=== PATIENT | male | born 1950 | race Caucasian/White ===

== ENCOUNTER 2021-07-23 07:31 | Outpatient (CLI) | payer MEDICARE, SELFPAY ==
--- NOTE | 2021-08-08 16:53 | WPDHOMESLEEP ---
Sleep Study - Home Unattended Date of Study: 07/23/21 Ordering Provider: Kenyon Colvin APRN Interpreting Provider: Yumi Carrion MD Home Sleep Study Type: Watch PAT Height: 1.85 m Weight: 111.13 kg Body Mass Index: 32.3 Neck Circumference (inches): 18.50 [place]: 11 Reason for Sleep Study Hypersomnolence Sleep History Vivek Carrillo is a 71-year-old man with difficulty falling asleep and staying asleep. 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 He has his normal bedtime is 3:00 a.m., normally wakes between 8 and 9:00 a.m.. He stays up late in order to relax and be able to fall asleep but sometimes he has a difficult time falling asleep and he may stay awake all night. He has used trazodone 100 mg and melatonin 20 mg with some benefit. He does not take these every night however these do seem to help and he does not have side effects. He does not awaken from sleep feeling short of breath. He rarely awakens at night with heartburn, belching or coughing. He occasionally snores, and it can be loud enough that others complain about it. He rarely has trouble sleeping with a cold. He does not wake up gasping for breath at night. He occasionally has breathing problems at night observed by others. He rarely sweats excessively at night. He does not notice his heart pounding or beating irregularly at night. He frequently falls asleep during the day, and frequently this happens involuntarily. He occasionally falls asleep while driving. He does not have loss of muscle tone with strong emotion. He does not have daytime difficulties due to excessive sleepiness. He is retired. He does not feel paralyzed on waking or falling asleep. He occasionally has vivid dreamlike scenes upon awakening or falling asleep. He does not feel afraid to go to sleep. He occasionally has nightmares. He occasionally remembers his dreams. He occasionally has racing thoughts. He rarely feels sad, depressed or anxious. He does not have muscular tension. He occasionally notices parts of his body jerking. He occasionally kicks at night. He rarely has crawling and aching feelings in his legs. He rarely has any kind of leg pain at night. He does not have morning jaw pain. He rarely grinds his teeth during sleep. He is not bothered by pain during the day or awakened by pain at night. He rarely wakes up feeling stiff the morning. He does not wake up with sore achy muscles. He does not wake up with pain in the neck and spine. He has fatigue, memory problems, depression and sexual problems. He frequently has daytime sleepiness. Normal bedtime 3:00 a.m. falling asleep within 15 minutes waking once at night to urinate sometimes he does not awaken at all. He wakes the morning between 8 and 9:00 a.m.. Weekend schedule is the same. He takes naps in the afternoon or evening. A short nap may be refreshing. He feels better in the morning compared to other times of day. Habits: quit tobacco 40 years ago. Caffeine 2-3 servings a day. Alcohol 3-5 servings per week. [facility] Past Medical History Medical History (Updated 08/08/21 @ 17:06 by Yumi Carrion MD) Asthma Chronic cough Depression with anxiety Hypersomnia PAT (paroxysmal atrial tachycardia) Seasonal allergies Social History Social History (Updated 05/29/21 @ 10:19 by Iliana Ramirez CMA) Smoking packs per day: 1 Smoking cigarettes per day: 20.0 Years smoked: 30 Smoking pack-years: 30.00 Smoking status: Former smoker Medications Home Medications Medication Instructions Recorded Confirmed Type B-complex with vitamin C 1 tablet PO DAILY 11/19/19 05/29/21 History ascorbic acid (vitamin C) 500 mg 500 mg PO DAILY 11/19/19 05/29/21 History tablet aspirin 81 mg tablet,delayed 81 mg PO DAILY 11/19/19 05/29/21 History release bupropion HCl 300 mg 24 hr tablet, 300 mg PO QAM 11/19/19 05/29/21 History extended release cholecalciferol (vitamin D3) 25 1
[2021-08-08 17:11] VITALS: BMI 32.3
== END 2021-07-24 13:12 | disposition home or self-care (01) ==
LOC: ANHCSM 07:36
PROVIDERS: PCP Nurse Practitioner Family; Visit Provider Nurse Practitioner Family
DX: G47.31 Primary central sleep apnea (principal); G47.10 Hypersomnia, unspecified; R06.83 Snoring; Z68.32 Body mass index [BMI] 32.0-32.9, adult; F32.9 Major depressive disorder, single episode, unspecified
CPT/HCPCS: 95800

== ENCOUNTER 2022-09-12 09:34 | Outpatient (CLI) | payer MEDICARE, SELFPAY ==
--- NOTE | 2022-09-12 09:55 | ECHO_ITS ---
Patient Info Name: Vivek Carrillo Age: 72 years : 1950 Gender: Male Ht: 73 in Wt: 240 lbs BSA: 2.40 m2 HR: 78 bpm BP: 144 / 88 mmHg Technical Quality: Fair Exam Date: 09/12/2022 10:40 AM Exam Location: [facility] Patient Status: Outpatient Admit Date: 09/12/2022 Staff Ordering Physician: Sisi Rubio PA-C Drywall Finishing Foreman: Elsi García RDCS Attending Provider: Sisi Rubio PA-C Exam Type: CA echo doppler color flow Study Info Indications - sleep cancer Complete two-dimensional, color flow and Doppler transthoracic echocardiogram is performed. Summary 1. Complete two-dimensional, color flow and Doppler transthoracic echocardiogram is performed. 2. Left ventricular chamber dimension is normal. 3. Left ventricular systolic function is normal, estimated at 60-65%. 4. There is mildly increased left ventricular wall thickness. 5. The left ventricular diastolic function is grade I diastolic dysfunction. 6. E/e' 6 is not elevated. 7. There is mild mitral valve regurgitation. 8. No pulmonary hypertension, estimated pulmonary arterial systolic pressure is 21 mmHg. Left Ventricle E/e' 6 is not elevated. Left ventricular chamber dimension is normal. Left ventricular systolic function is normal, estimated at 60-65%. There is mildly increased left ventricular wall thickness. The left ventricular diastolic function is grade I diastolic dysfunction. Right Ventricle Right ventricular systolic function is normal and with normal TAPSE 2.7 cm. Right ventricular chamber dimension is normal. Left Atria Left atrial chamber dimension is normal. Right Atria Right atrial chamber dimension is normal. Aortic Valve The aortic valve is trileaflet. There is no aortic valve stenosis. There is no aortic valve regurgitation. Pulmonic Valve There is no pulmonic regurgitation. Mitral Valve There is no mitral valve stenosis. There is mild mitral valve regurgitation. Tricuspid Valve There is no tricuspid valve regurgitation. No pulmonary hypertension, estimated pulmonary arterial systolic pressure is 21 mmHg. Pericardium/Pleural There is no pericardial effusion. Inferior Vena Cava Normal inferior vena cava with >50% collapse upon inspiration consistent with normal right atrial pressure, 5 mmHg. Aorta The aortic root size at the sinus of Valsalva is normal. Left Ventricular Outflow Tract Name Value Normal LVOT 2D LVOT Diameter 2.1 cm LVOT Doppler LVOT Peak Gradient 5 mmHg LVOT Mean Gradient 3 mmHg LVOT VTI 26 cm LVOT VTI/AV VTI Ratio 0.8 LVOT Stroke Volume 88 ml LVOT CO 16.5 l/min LVOT CI 6.9 l/min/m2 Pulmonic Valve Name Value Normal PV Doppler
== END 2022-09-12 09:35 | disposition home or self-care (01) ==
PROVIDERS: PCP Internal Medicine; Visit Provider Physician Assistant
DX: G47.31 Primary central sleep apnea (principal)
CPT/HCPCS: 93306

== ENCOUNTER 2022-10-09 07:06 | Outpatient (CLI) | payer MEDICARE, SELFPAY ==
--- NOTE | 2022-11-07 11:44 | WPDSLEEPSTUD ---
Sleep Study Date of Study: 10/09/22 Ordering Provider: GIDEON Diggs Interpreting Physician: Yumi Carrion MD Sleep Study Type: Split Polysomnogram Height: 1.85 m Weight: 108.862 kg Body Mass Index: 31.6 Neck Circumference (inches): 18.5 [place]: 7 Reason for Sleep Study Restless sleep, excessive daytime sleepiness * 08/08/21 - Home sleep test - Mild central sleep apnea with AHI 14.4 which is mainly central events, desaturation to 88%, snoring. He is not a candidate for auto PAP with the majority of events scored as central events.? His severity of apnea is much higher in REM. The central apnea hypopnea index in REM is 26.7 and the overall apnea-hypopnea index is 33.4 in REM.? This is also higher in the supine position with an AHI of 29.8. BMI 32.3 at that time. Sleep History Vivek Carrillo is a 72-year-old man with restless sleep. His medical comorbidities include hypertension, depression, acid reflux and seasonal allergies. He uses sleeping pills at times to initiate sleep. If he has had restless sleep and the sheets are torn off the bed, he remakes the bed before he is able to resume sleep. He wakes during the night use the bathroom and adjust the covers on the bed. There is a family history of sleep disorders with both of his brothers being treated for sleep apnea. He does not awaken from sleep feeling short of breath. He does not awaken at night with heartburn, belching or coughing. He occasionally snores. He sleeps alone so he is not certain if it is loud or not. He rarely has trouble sleeping with a cold. He does not wake up gasping for breath at night. He rarely sweats excessively at night. He does not notice his heart pounding or beating irregularly at night. He occasionally falls asleep during the day, occasionally falls asleep involuntarily including while driving. He does not have loss of muscle tone with strong emotion. He does not feel paralyzed on waking or falling asleep. He does not have daytime difficulties due to excessive sleepiness. He occasionally has vivid dreamlike scenes upon waking or falling asleep. He occasionally has nightmares. He frequently remembers his dreams. He frequently has racing thoughts. He occasionally feels sad, depressed or anxious. He rarely has muscular tension. He does not notice parts of his body jerking. He frequently kicks at night and occasionally has crawling and aching feelings in his legs. He occasionally has leg pain during the night. He does not have morning jaw pain. He occasionally grinds his teeth during sleep. He rarely is bothered by pain during the day or awakened by pain during the night. He occasionally wakes up feeling stiff in the morning. He rarely wakes up with sore achy muscles or pain in the neck and spine. He takes sedatives to help get to sleep. He has memory problems. Normal bedtime is between 1:00 a.m. and 3:00 a.m., taking 30 minutes or sometimes a long as 1 hour to fall asleep. He typically wakes up 1-3 times at night to urinate. While awake he remains his bed. He stays awake for several minutes before falling asleep. His normal wake up time is between 7:00 a.m. and 9:00 a.m.. He has the same schedule on weekends. He estimates getting 5-8 hours of sleep at night. He sometimes takes naps in the afternoon or evening. He may feel refreshed after short 10-15 minute nap. He feels better in the morning compared to other times of day. Some nights he awakens feeling refreshed. Habits: Quit tobacco 40 years ago. No caffeine. He drinks alcohol 1-3 beverages a day. No recreational drugs. [facility] Past Medical History Medical History Asthma Chronic cough Depression with anxiety Hypersomnia MILADY (obstructive sleep apnea) PAT (paroxysmal atrial tachycardia) Seasonal allergies Social History Social History Smoking packs per day:
[2022-11-07 13:17] VITALS: BMI 31.6
--- NOTE | 2023-02-18 11:33 | SLEEP ---
pt is only using 1 hour nightly
--- NOTE | 2023-05-23 11:48 | SLEEP ---
pt returned device to [facility]
== END 2022-10-10 06:32 | disposition home or self-care (01) ==
PROVIDERS: PCP Internal Medicine; Visit Provider Physician Assistant
DX: G47.33 Obstructive sleep apnea (adult) (pediatric) (principal)
CPT/HCPCS: 95810; 95811

== ENCOUNTER 2024-06-10 13:33 | Outpatient (CLI) | payer MEDICARE, SELFPAY ==
--- NOTE | 2024-06-10 13:39 | ECHO_ITS ---
Patient Info Name: Vivek Carrillo Age: 74 years : 1950 Gender: Male Ht: 72 in Wt: 250 lbs BSA: 2.44 m2 HR: 58 bpm BP: 169 / 98 mmHg Heart Rhythm: Sinus Rhythm Technical Quality: Good Exam Date: 06/10/2024 1:57 PM Exam Location: Echo Lab Patient Status: Outpatient Admit Date: 06/10/2024 Staff Ordering Physician: eKnyon Colvin APRN Food Server: Anny Brian RDCS Attending Provider: Kenyon Colvin APRN Referring Physician: Vinicius MAI; Exam Type: CA echo doppler color flow Study Info Indications - edema Complete two-dimensional, color flow and Doppler transthoracic echocardiogram is performed. Summary 1. Left ventricular chamber dimension is normal. 2. Left ventricular systolic function is normal, estimated at 60-65%. 3. There is mildly increased left ventricular wall thickness. 4. The left ventricular diastolic function is grade I diastolic dysfunction. 5. Right ventricular systolic function is normal. 6. There is trace mitral valve regurgitation. 7. There is trace tricuspid valve regurgitation. 8. No pulmonary hypertension, estimated pulmonary arterial systolic pressure is 12 mmHg. 9. Normal inferior vena cava with >50% collapse upon inspiration consistent with normal right atrial pressure, 3 mmHg. Left Ventricle Left ventricular chamber dimension is normal. Left ventricular systolic function is normal, estimated at 60-65%. There is mildly increased left ventricular wall thickness. The left ventricular diastolic function is grade I diastolic dysfunction. Right Ventricle Right ventricular chamber dimension is normal. Right ventricular systolic function is normal. Left Atria Left atrial chamber dimension is normal. Right Atria Right atrial chamber dimension is normal. Atrial Septum Intact interatrial septum visualized by color flow imaging. Aortic Valve The aortic valve is not well visualized. There is no aortic valve stenosis. There is no aortic valve regurgitation. Pulmonic Valve The pulmonic valve is not well visualized. Mitral Valve There is trace mitral valve regurgitation. Tricuspid Valve There is trace tricuspid valve regurgitation. No pulmonary hypertension, estimated pulmonary arterial systolic pressure is 12 mmHg. Pericardium/Pleural The pericardium appears epicardial fat pad. There is no pericardial effusion. Inferior Vena Cava Normal inferior vena cava with >50% collapse upon inspiration consistent with normal right atrial pressure, 3 mmHg. Aorta The aortic root size at the sinus of Valsalva is normal. Left Ventricular Outflow Tract Name Value Normal LVOT 2D LVOT Diameter 2.0 cm LVOT Doppler LVOT Peak Gradient 4 mmHg LVOT Mean Gradient 3 mmHg LVOT VTI 27 cm LVOT VTI/AV VTI Ratio 1.0 LVOT Stroke Volume 89 ml LVOT CO 4.8 l/min LVOT CI 2.0 l/min/m2 Pulmonic Valve Name Value Normal
== END 2024-06-10 13:34 | disposition home or self-care (01) ==
LOC: ANHCARD 13:34
PROVIDERS: PCP Internal Medicine; Visit Provider Nurse Practitioner Family
DX: R60.9 Edema, unspecified (principal); R06.01 Orthopnea
CPT/HCPCS: 93306

== ENCOUNTER 2024-12-06 09:45 | Outpatient (CLI) | payer MEDICARE, SELFPAY ==
[2024-12-06 10:17] LABS: Basophils Absolute Auto 0.1 K/mm3 (0.0-0.1); Basophils Percent Auto 1.4 % (0.2-1.2); Eosinophils Absolute Auto 0.5 K/mm3 (0-0.3); Eosinophils Percent Auto 6.9 % (0-4.4); Hematocrit 44.4 % (42.0-52.0); Hemoglobin 15.1 g/dL (14.0-18.0); Immature Granulocyte Absolute 0.03 K/mm3 (0.00-0.031); Immature Granulocyte Percent A 0.4 % (0-0.5); Lymphocytes Absolute Auto 2.09 K/mm3 (0.9-3.2); Lymphocytes Percent Auto 28.9 % (18.3-44.2); Mean Corpuscular Hemoglobin 31.7 pg (26-34); Mean Corpuscular Volume 93.3 fl (80-100); Mean Platelet Volume 9.1 fl (7.4-10.4); Monocytes Absolute Auto 0.7 K/mm3 (0.1-0.6); Monocytes Percent Auto 9.9 % (2.6-8.5); Neutrophils Absolute Auto 3.8 K/mm3 (1.3-6.7); Neutrophils Percent Auto 52.5 % (45.5-73.1); Platelet Count Result 219 k/mm3 (150-375); Red Blood Count 4.76 M/mm3 (4.6-6.20); Red Cell Distribution Width 12.4 % (11.5-14.5); White Blood Count 7.2 K/mm3 (4.5-10.0)
[2024-12-08 15:43] LABS: Alternaria alternata IgE <0.10 kU/L; Alternaria alternata IgE Class 0; Aspergillus fumigatus IgE <0.10 kU/L; Bermuda Grass (G2) IgE <0.10 kU/L; Bermuda Grass (G2) IgE Class 0; Cat Dander IgE <0.10 kU/L; Cat Dander IgE Class 0; Cladosporium herbarum IgE <0.10 kU/L; Cladosporium herbarum IgE Clas 0; Cockroach IgE <0.10 kU/L; Cockroach IgE Clas 0; Common Ragweed IgE Class 0; Cottonwood IgE <0.10 kU/L; Dermatophagoides Farinae Class 0; Dermatophagoides Pterony Class 0/1; Dermatophagoides Pteronyssinus 0.16 kU/L; Dog Dander IgE <0.10 kU/L; Elm (T8) IgE <0.10 kU/L; Elm (T8) IgE Class 0; Hickory/Pecan IgE <0.10 kU/L; Hickory/Pecan IgE Class 0; Immunoglobulin E 58 kU/L (<OR=114); Maple Box Elder IgE Class 0; Mountain Cedar IgE <0.10 kU/L; Mountain Cedar IgE Class 0; Mouse Urine Proteins IgE <0.10 kU/L; Mouse Urine Proteins IgE Class 0; Oak IgE <0.10 kU/L; Peniciliium notatum class 0; Penicillium notatum (M1) IgE <0.10 kU/L; Rough Marsh <0.10 kU/L; Rough Marsh Elder Class 0; Rough Pigweed (W14) IgE <0.10 kU/L; Rough Pigweed (W14) IgE Class 0; Russian Thistle <0.10 kU/L; Sycamore IgE <0.10 kU/L; Sycamore IgE Class 0; Timothy Grass IgE <0.10 kU/L; Timothy Grass IgE Class 0; Walnut Tree IgE <0.10 kU/L; Walnut Tree IgE Class 0; White Ash IgE Class 0; White Mulberry IgE <0.10 kU/L; White Mulberry IgE Class 0
== END 2024-12-06 09:46 | disposition home or self-care (01) ==
LOC: ANHLAB 09:47
PROVIDERS: PCP Internal Medicine; Visit Provider Nurse Practitioner Family
DX: J45.909 Unspecified asthma, uncomplicated (principal)
CPT/HCPCS: 36415; 82785; 85025; 86003

== ENCOUNTER 2025-05-11 13:06 | Outpatient (CLI) | payer MEDICARE, SELFPAY ==
--- NOTE | ~2025-05-11 | CT_ITS ---
CT Scan of the Chest without Contrast: Clinical Indication: Chronic cough Technique: Contiguous sections were acquired throughout the chest without intravenous contrast. Dose reduction technique was used on this scan by utilizing automated exposure control and iterative recon struction technique. The dose-length product (DLP) was 573.88 mGy-cm. Findings: There is no evidence of any significant mediastinal, hilar or axillary lymphadenopathy. Coronary jean pierre ry calcifications are present. There is no evidence of pleural or pericardial effusion. The lungs are clear, aside from minimal bibasilar scarring. Images through the upper abdomen reveal gallstones. 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 Impression: No significant pulmonary abnormality. Cholelithiasis. Reviewed, dictated and finalized at location . Impression: No significant pulmonary abnormality. Cholelithiasis.
--- OUTSIDE RECORDS SUMMARY | 2025-05-11 13:14 | XMS_ITS | Encounter Summary ---
Author Organization [facility] Address [address] [place] [address] Phone Care Team Providers Care Talcer Name Role Phone Chevy Belle MD Primary Care Provider [phone] Farhana Ceron MD Unavailable [phone] Yumi Carrion MD Unavailable [phone] Encounter Details Date Type Department Care Team (Late st Contact Info) Description 09/12/2022 Orders Only [facility] [address] [place] [address] Scanning, Provider Social History Tobacco Use Types Packs/Day Years Used Date Smoking Tobacco: Former Smokeless Tobacco: Former Alcohol Use Standard Drinks/Week Comments Yes 0 (1 standard drink = 0.6 oz pur e alcohol) occassional PHQ-2 Answer Date Recorded PHQ-2 Total Score (If total score is 3 or more points, staff should administer the PHQ-9) 0 05/23/2022 Sex and Gender Information Value Date Recorded Sex Assigned at Not on file Legal Sex Male 11:09 AM ENTERPRISE ARCHITECT Gender Identity Male 10/11/2021 10:38 AM ENTERPRISE ARCHITECT Sexual Orientation Straight 10/11/2021 10 :38 AM ENTERPRISE ARCHITECT 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 Not on file Not on file Not on file documented as of this encounter Plan of Treatment Not on file documented as of this encounter Procedures Procedure Name Priority Date/Time Associated Diagnosis Comments CARDIOLOGY DOCUMENT SCAN 09/12/2022 documented in this encounter Results * CARDIOLOGY DOCUMENT SCAN (09/12/2022) Anatomical Region Laterality Modality Other us Provider Scanning CV CARDIAC SERVICES PROCEDURES Final Result documented in this encounter Visit Diagnoses Not on filedocumented in this encounter Additional Health Concerns Infection Onset Date Last Indicated Resolved Time COVID: Suspected 01/07/2023 01/08/2023 01/08/2023 3:05 AM ENTERPRISE ARCHITECT COVID: Suspected 02/06/2024 02/06/2024 02/06/2024 3:09 PM CDT COVID: Suspected 09/17/2024 09/17/2024 09/17/2024 9:00 AM ENTERPRISE ARCHITECT COVID: Suspected 03/23/2025 03/23/2025 03/23/2025 9:28 AM CDT documented as of this encounter Care Teams Talcer Relationship Specialty Start Date End Date Chevy Belle MD PCP - General 02/07/17 Farhana Ceron MD [address] [place] [address] Surgeon Anesthesiology 09/07/23 Yumi Carrion MD [address] [id number] Consulting Physician Critical Care Med 11/25/24 documented as of this encounter
--- OUTSIDE RECORDS SUMMARY | 2025-05-11 13:14 | XMS_ITS | Clinical Summary ---
Author Organization [facility] Address [address] [facility] [place] [address] Phone Care Team Providers Care Aircraft Layout Worker Name Role Phone Chevy Belle MD Primary Care Provider [phone] Allergies No known active allergies Medications clonazePAM (KLONOPIN) 2 MG Tablet Take 1 mg by mouth nightly as needed. 2 8 Active buPROPion (WELLBUTRIN XL) 150 MG XL tablet take 1 tablet by oral route every day 3 Active LamoTRIgine (LAMICTAL) 150 MG TabletIndicatio ns:Mood Take 150 mg by mouth daily. Indications: Mood Active lisinopril (PRINIVIL, ZESTRIL) 5 MG Tablet Take 5 mg by mouth daily. 8 Active verapamil (CALAN-SR) 240 MG Tablet Controlled Release every morning. 8 Active aspirin EC 81 MG Tablet Delayed Response Take 81 mg by mouth daily. Active MULTIPLE VITAMIN PO Take 1 Tab by mouth daily. Active [place]-3 Fatty Acids (FISH OIL PO) Take 1 Tab by mouth daily. Active glucosamine-cho ndroitin 500-400 MG Capsule Take 1 Cap by mouth daily. Active Ascorbic Acid (VITAMIN C PO) Take 1 Tab by mouth daily. Active Cholecalciferol (VITAMIN D PO) Take 1 Tab by mouth daily. Active nebivolol (BYSTOLIC) 5 MG Tablet Take 10 mg by mouth daily. Active metoprolol Succinate (TOPROL-XL) 50 MG TABLET SR 24 HR Take 50 mg by mouth every morning. Active budesonide-form oterol fumarate (Symbicort) 160-4.5 MCG/ACT Aerosol take 2 Puffs by inhalation 2 times daily. Active allopurinol (ZYLOPRIM) 100 MG Tablet Take 100 mg by mouth 3 times daily. Active Active Problems Problem Noted Date Diagnosed Date Colon polyps 06/22/2024 Family History Medical History Relation Name Comments Cancer Father skin Coronary Artery Disease Father has pacer Other-comment Mother hx of colon re section Relation Name Status Comments Father Alive defibrillator, cardiac dysrhythmia Mother Alive Colon infection , colostomy Social History Tobacco Use Types Packs/Day Years Used Date Smoking Tobacco: Former Cigarettes 1 2 1 - 08/20/1968 Smokeless Tobacco: Never Tobacco Cessation:Counseling Given: Not Answered Alcohol Use Standard Drinks/Week Comments Yes 0 (1 standard drink = 0.6 oz pur e alcohol) rarely PHQ-2 Answer Date Recorded PHQ-2 Score 0 08/20/2019 Sex and Gender Information Value Date Recorded Sex Assigned at Not on file Legal Sex Male 8:55 PM CDT Gender Identity Not on file Sexual Orientation Not on file Last Filed Vital Signs Vital Sign Reading Time Taken Comments Blood Pressure 151/84 06/22/2024 12:26 PM CDT Pulse 85 06/22/2024 12:26 PM CDT Temperature 36 C (96.8 F) 06/22/2024 10:27 AM CDT Respiratory Rate 16 06/22/2024 12:26 PM CDT Oxygen Saturation 100% 06/22/2024 12:26 PM CDT Inhaled Oxygen Concentration - - Weight 113.4 kg (250 lb) 06/10/2024 11:48 AM CDT Height 185.4 cm (6' 1) 06/10/2024 11:48 AM CDT Body Mass Index 32.98 06/10/2024 11:48 AM CDT Plan of Treatment Health Maintenance Due Date Last Done Comments Hepatitis C Virus (HCV) Screening 1950 Zoster Immunization (2 of 2) 10/15/2023 08/20/2023 SARS-COV-2 Immunization ( season) 2024 09/02/2023, 09/03/2022, 02/25/2022, Additional history exists Hepatitis B Immunization (3 of 3 - Hep B Twinrix 3-dose series) 11/08/2024 06/08/2024, 09/02/2023 Influenza Immunization (Season Ended) 2025 08/20/2023, 08/01/2022, 09/10/2021, Additional history exists Pneumococcal Immunization (50+ years) Completed 02/25/2022, 05/08/2017, 04/13/2015 Pneumococcal Immunization Combined Discontinued 02/25/2022, 05/08/2017, 04/13/2015 DTaP/Tdap/Td Immunization Discontinued 06/13/2023, 01/2016 TdaP Immunization Completed 06/13/2023, 09/12/2016 Respiratory Syncytial Virus (RSV) Immunization (Adult) Completed 08/20/2023 Colonoscopy Discontinued 06/22/2024, 09/22/2018 Colorectal Cancer Screening Discontinued Cologuard Discontinued Human Papillomavirus (HPV) Immunization Aged Out No longer eligible based on patient's age to complete this topic Immunochemical Fecal Occult Blood Discontinued Meningococcal Immunization (ACWY) Aged Out No longer eligible based on patient's age to complete this topic Rotavirus Immunization Aged Out No lo nger eligible based on patient's age to complete [place] [address] MEDICARE C [facility] Care Teams Aircraft Layout Worker Relationship Specialty Start Date End Date Chevy Belle MD [address] [place] [address] PCP - General Internal Medicine 12/05/16
--- OUTSIDE RECORDS SUMMARY | 2025-05-11 13:14 | XMS_ITS | Encounter Summary ---
Author Organization [facility] Address [address] [place] [address] Phone Care Team Providers Care Analyst Business Analysis Name Role Phone Chevy Belle MD Primary Care Provider [phone] Farhana Ceron MD Unavailable [phone] Yumi Carrion MD Unavailable [phone] Encounter Details Date Type Department Care Team (Late st Contact Info) Description 07/24/2017 Orders Only [facility] [address] [place] [address] Chevy Belle MD [address] [place] [address] Dry eyes (Primary Dx) Social History Tobacco Use Types Packs/Day Years Used Date Smoking Tobacco: Former Smokeless Tobacco: Former Alcohol Use Standard Drinks/Week Comments Yes 0 (1 standard drink = 0.6 oz pur e alcohol) Sex and Gender Information Value Date Recorded Sex Assigned at Not on file Legal Sex Male 11:09 AM HOME PARAPROFESSIONAL Gender Identity Male 10/11/2021 10:38 AM HOME PARAPROFESSIONAL Sexual Orientation Straight 10/11/2021 10 :38 AM HOME PARAPROFESSIONAL documented as of this encounter Plan of Treatment Not on file documented as of this encounter Visit Diagnoses Diagnosis Dry eyes- Primary Unspecified tear film insufficiency documented in this encounter Additional Health Concerns Infection Onset Date Last Indicated Resolved Time COVID: Suspected 03/05/2022 03/05/2022 03/05/2022 2:46 PM CDT COVID: Suspected 01/07/2023 01/08/2023 01/08/2023 3:05 AM HOME PARAPROFESSIONAL COVID: Suspected 02/06/2024 02/06/2024 02/06/2024 3:09 PM CDT COVID: Suspected 09/17/2024 09/17/2024 09/17/2024 9:00 AM HOME PARAPROFESSIONAL COVID: Suspected 03/23/2025 03/23/2025 03/23/2025 9:28 AM CDT documented as of this encounter Care Teams Analyst Business Analysis Relationship Specialty Start Date End Date Chevy Belle MD PCP - General 02/07/17 Farhana Ceron MD [address] [place] [address] Surgeon Anesthesiology 09/07/23 Yumi Carrion MD [address] [address] Consulting Physician Critical Care Med 11/25/24 documented as of this encounter
--- OUTSIDE RECORDS SUMMARY | 2025-05-11 13:14 | XMS_ITS | Continuity of Care Document ---
Author Organization [facility] [place] [address] [place] [address] Phone Care Team Providers Care It Consulting Director Name Role Phone Darin Williamson OD Unavailable Unavailable Allergies, Adverse Reactions, Alerts Substance Reaction Status Criticality No Known Allergies Active No Inform ation Medications Medication Instructions Dosage Effective Dates (start - stop) Status Comments lamotrigine 150 mg tablet - Active clonazepam 2 mg tablet - Act bobby bupropion HCl XL 300 mg 24 hr tablet, extended release - Active lisinopril 5 mg tablet - Act bobby methylprednisolone 4 mg tablets in a dose pack - Active etodolac 400 mg tablet - Act bobby multivitamin tablet take 1 tablet by oral route every day with food - Active FISH OIL (unknown strength) Not Available - Active GLUCOSAMINE-CHONDROITIN (unknown strength) Not Available - Active VITAMIN B-12 (unknown strength) Not Available - Active Opcon-A 0.91036 %-0.315 % eye drops - Active Advance Directives Directive Yes / No Effective Date File Name No Information Encounters Encounter Description Practice Location Reason(s) For Visit Diagnoses Date Provider Providers Copied on Encounter [facility], [address] [place] [address] [address], [place], [place], [id number], tel:[phone] BIO Kimberlee Rosas No Information Teri Webster. [address], [address], [place], [place], [id number] , . tel:[phone] Referring Provider: Darin Ontiveros, [address], [place], [address] . tel:[phone] [facility], [address], [place], [place], [id number], [place] tel:[phone] SEC Kimberlee Rosas No Information Teri Webster. [address], [address], [place], [place], [address] , . tel:[phone] Family History Family Member Type Diagnosis Age At Onset No Information Payers Payer name Insurance type Covered constitution party ID Authoriza tion(s) No Information Social History Type Description Quantity Date Captured Comments Sex Male Smoking Status No Information Chief Complaint And Reason For Visit No Information Reason For Referral Reason For Referral No Information History Of Present Illness Encounter Date Complaint History Of Prese nt Illness No Information Functional Status Date Functional Assessmen t No Information Instructions Date Instruction Additional Infor mation No Information Assessments Type Assessment Date No Information Patient Care Teams Name Effective Dates (start - stop) Status Members No Information
--- OUTSIDE RECORDS SUMMARY | 2025-05-11 13:14 | XMS_ITS | Clinical Summary ---
Author Organization [facility] Address [address] [place] [address] Care Team Providers Care Alarm Field Technician Name Role Phone Chevy Belle MD Primary Care Provider [phone] Source Comments [facility],non-owned Affiliates and Associated Physician Practices is amultiple site organization consisting of ambulatory clinics and hospital sitesin [place], [place], [place] and [place]. This disclosure is being madepursuant to the Care Everywhere program and may not contain all information available regarding this patient. Last updated 18.[facility] Allergies No known active allergies Medications * This document contains information received from the source organization and may not represent a complete record from that organization. * Be aware that medications may not be up to date on this document. Alwaysverify current medications with the patient. verapamil CR (ISOPTIN-SR) 240 MG tablet Take 240 mg by mouth daily with breakfast Active lisinopril (PRINIVIL; ZESTRIL) 20 MG tablet Take 20 mg by mouth once daily Active buPROPion XL 24hr (WELLBUTRIN-XL) 300 MG tablet Take 300 mg by mouth every morning Active lamoTRIgine (LAMICTAL) 150 MG tablet Take 150 mg by mouth 2 times daily Active clonazePAM (KLONOPIN) 2 MG tablet Take 2 mg by mouth daily with breakfast Active Social History Tobacco Use Types Packs/Day Years Used Date Smoking Tobacco: Never Assessed Sex and Gender Information Value Date Recorded Sex Assigned at Not on file Legal Sex Male 3:21 PM CDT Gender Identity Not on file Sexual Orientation Not on file Last Filed Vital Signs Vital Sign Reading Time Taken Comments Blood Pressure 152/80 01/14/2023 11:30 AM LEATHER SPRAYER Pulse 50 01/14/2023 11:58 AM LEATHER SPRAYER Temperature 36.7 C (98 F) 04/29/2017 2:52 PM CDT Respiratory Rate 13 01/14/2023 11:58 AM LEATHER SPRAYER Oxygen Saturation 94% 01/14/2023 11:58 AM LEATHER SPRAYER Inhaled Oxygen Concentration - - Weight 111.1 kg (245 lb) 01/14/2023 6:37 AM LEATHER SPRAYER Height 185.4 cm (6' 1) 01/14/2023 6:37 AM LEATHER SPRAYER Body Mass Index 32.32 01/14/2023 6:37 AM LEATHER SPRAYER Plan of Treatment Health Maintenance Due Date Last Done Comments HEPATITIS C SCREENING 03/23/1968 DTAP/TDAP/TD VACCINES (1 - Tdap) 1968 PNEUMOCOCCAL VACCINE 50+ (1 of 1 - PCV) 1999 ZOSTER VACCINE (1 of 2) 1999 Respiratory Syncytial Virus (RSV) Vaccine Pt: or over 60 yrs (1 - 1-dose 75+ series) 2024 COVID-19 VACCINE ( season) 2024 09/03/2022, 02/25/2022, 09/19/2021, Additional history exists DEPRESSION SCREENING 11/10/2024 MEDICARE AWV CALENDAR YEAR 2024 INFLUENZA VACCINE (Season Ended) 2025 08/01/2022, 09/10/2021, 07/19/2020, Additional history exists HEPATITIS B VACCINE Aged Out No longe r eligible based on patient's age to complete this topic HIB VACCINE Aged Out No longer eligi ble based on patient's age to complete this topic HPV VACCINE Aged Out No longer eligi ble based on patient's age to complete this topic MENINGOCOCCAL (Group B) VACCINE SHARED DECISION-MAKING Aged Out No longer eligible based on patient's age to complete this topic MENINGOCOCCAL GROUPS A/C/Y/W VACCINE Aged Out No longer eligible based on patient's age to complete this topic Insurance [facility] MANAGED MEDICARE ADV [facility] MANAGED MEDICARE ADV MANAGED MEDICARE ADV Care Teams Alarm Field Technician Relationship Specialty Start Date End Date Chevy Belle MD PCP - General 09/20/19
--- OUTSIDE RECORDS SUMMARY | 2025-05-11 13:14 | XMS_ITS | Referral Summary ---
Author Organization [facility] Address [address] [place] [id number] Care Team Providers Care Rotary Drum Dyer Name Role Phone Chevy Belle MD Primary Care Provider [phone] Farhana Ceron MD Unavailable [phone] Yumi Carrion MD Unavailable [phone] Encounters Date Type Department Care Team Description 04/14/2025 Telephone [facility] [address] [place] [phone] Chevy Belle MD [facility] 03/23/2025 9:00 AM CDT Office Visit [facility] [address] [place] [phone] Yessenia Florentino NP Upper respiratory tract infection, unspecified type (Primary Dx); Mild persistent asthma with (acute) exacerbation from Last 3 Months Allergies Active Allergy Reactions Criticality Noted Date Comments Cyclobenzaprine Other (See comments) Low 09/07/2023 confusion Medications colchicine (COLCRYS) 0.6 mg tabletIndication s:acute gouty arthritis Take 1 tablet (0.6 mg total) by mouth daily for 9 days 9 tablet 1 Active tamsulosin (FLOMAX) 0.4 mg extended release capsule Take 1 capsule (0.4 mg total) by mouth daily 30 capsule 1 2 Active Additional Information Patient not taking.Reported on 03/23/2025 glucosamine-victor hugo droitin (glucosamine-cho ndroitin) 500-400 mg capsule Take 1 capsule by mouth daily Active multivitamin tablet Take 1 tablet by mouth daily Active omega-3 fatty acids-fish oil 300-1,000 mg capsule Take 1 tablet by mouth daily Active allopurinoL (ZYLOPRIM) 100 mg tablet Take 1 tablet (100 mg total) by mouth 3 (three) times a day 2 Active aspirin 81 mg enteric coated tablet Take 1 tablet (81 mg total) by mouth daily Active Symbicort 160-4.5 mcg/actuation inhaler INHALE 2 PUFFS BY MOUTH EVERY 12 HOURS 2 Active buPROPion XL (WELLBUTRIN XL) 300 mg 24 hr tablet Take 1 tablet (300 mg total) by mouth every morning 2 Active clonazePAM (KlonoPIN) 0.5 mg tablet Take 1 tablet (0.5 mg total) by mouth 2 (two) times a day as needed for anxiety 2 Active lamoTRIgine (LaMICtal) 200 mg tablet Take 1 tablet (200 mg total) by mouth daily 2 Active traZODone (DESYREL) 100 mg tablet Take 1 tablet (100 mg total) by mouth nightly Active furosemide (LASIX) 20 mg tablet Take 1 tablet (20 mg total) by mouth daily 30 tablet 4 Active Additional Information Patient not taking.Reported on 03/23/2025 dextromethorphan -guaifenesin 5-100 mg/5 mL liquid Take by mouth Active linaCLOtide (LINZESS) 145 mcg capsuleIndicatio ns:chronic idiopathic constipation Take 1 capsule (145 mcg total) by mouth daily for 8 days 8 capsule 4 Active metoprolol XL (TOPROL-XL) 50 mg extended release tablet TAKE 1 TABLET BY MOUTH DAILY 100 tablet 2 5 Active verapamil SR (CALAN SR) 240 mg CR tablet TAKE 1 TABLET BY MOUTH EVERY 12 HOURS 200 tablet 2 5 Active melatonin 12 mg tablet Taking night as needed for sleep 4 Active meloxicam (MOBIC) 15 mg tabletIndication s:Acute right hip pain Take 1 tablet (15 mg total) by mouth daily With food. 30 tablet 5 Active albuterol HFA (PROVENTIL HFA,VENTOLIN HFA,PROAIR HFA) 90 mcg/actuation inhalerIndicatio ns:Acute cough,Dyspnea on exertion,Wheezin g Inhale 2 puffs every 6 (six) hours as needed for wheezing or shortness of breath 18 g 1 5 Active promethazine-DM (PROMETHAZINE-DM ) 1.25-3 mg/mL syrupIndications :Upper respiratory tract infection, unspecified type Take 5 mL by mouth every 4 (four) hours as needed for cough 120 mL 5 Active Active Problems Problem Noted Date Diagnosed Date Constipation 11/09/2024 Assessment & Plan (11/09/2024 8:21 AM HOUSING RELOCATION): Colonoscopy current polyps found no cancer found patient has developed constipation given Linzess 145 mg use once a day as needed samples of 12 given, date of 10 26 2024 Recurrent major depressive disorder, in remissio n 11/09/2024 Assessment & Plan (11/09/2024 8:26 AM HOUSING RELOCATION): Patient states mood is very good he continues under the care of Dr. Conrado Hughes [facility]. He is on Wellbutrin 300 mg daily, Klonopin 0.5 mg p.r.n. Lamictal 200 mg daily Abrasion of anterior right lower leg 09/25/2024 Assessment & Plan (09/25/2024 6:21 PM HOUSING RELOCATION): Acute, sustained 3 days ago while working any dirty window well. Abrasion as noted above with mild surrounding erythema but no warmth or fluctuance. No current drainage. We will prescribe doxycycline for sinusitis but may help with abrasion also. Keep skin clean and dry, do not pick at scabs. If it becomes dry and itchy he can use plain Vaseline or Neosporin if needed. Weight gain 10/21/2023 Assessment & Plan (10/21/2023 6:11 PM HOUSING RELOCATION): Patient has some swelling of his lower legs that he is concerned about really swelling over his feet patient has gained 21 lb since July this is mostly due to less activity he has back pain he is waiting for back surgery in the next 60 days he has been sitting around doing far less activity and doing a lot of eating snacking . But he is foods salty which would lead to some water retention plans at this time get a CMP proBNP to exclude CHF liver failure and renal failure patient is so advised. TSH not ordered. Bilateral lower extremity edema 10/14/2023 Assessment & Plan (05/03/2024 12:28 PM CDT): Minimal edema around his ankle I think this is physiological. Was reassured this is not represented for heart kidney or liver disease. Specific therapy indicated Assessment & Plan (10/14/2023 4:51 PM HOUSING RELOCATION): Bilateral lower extremity edema x 1 month. Worse to ankles and feet. Patient states that severe lower back pain limits his ability to be active and is very sedentary. Is seeing pain management and neurosurgery for back pain without much improvement. Suspect some component of edema is from sedentary lifestyle. He has tried cutting back on sodium and elevating legs. BP stable in-office today 140/72, pulse 61. 2 + pitting edema to ankles and feet, edema, warmth, redness present bilaterally in feet and toes. No drainage or evidence of infection. Will trial one week of lasix, 20mg daily. Check renal panel today. If kidney values are WNL patient can start lasix. Patient to follow-up with Dr. Belle. Encouraged compression socks during waking hours and increasing physical activity if able. Keep scheduled follow-ups with pain management and neurosurgery. Spinal stenosis of lumbar re gion with neurogenic claudication 09/23/2023 Assessment & Plan (05/03/2024 12:30 PM CDT): Patient had a successful back surgery approximately 6 months ago medical record report pending. Feels well in his asymptomatic Assessment & Plan (09/23/2023 2:09 PM HOUSING RELOCATION): Patient has been referred by [facility] to Neurosurgery in [place]. Patient did not get significant relief from pain management his appointments Neurosurgery is late September COVID-19 06/25/2023 Assessment & Plan (06/25/2023 2:15 PM CDT): URI symptoms for approx 10 days. Tested positive for COVID at home at start of symptoms. Tight cough noted throughout exam, lungs dim in bases but otherwise clear. Significant clear PND. No other acute findings on exam. Will order CXR to r/o PNA. Finish Z pack as directed. Rxd another burst of prednisone. Promethazine DM as needed for cough. Push fluids. Rest is an important part of healing. Obstructive sleep apnea syndrome 03/14/2023 Assessment & Plan (11/09/2024 8:16 AM HOUSING RELOCATION): Patient continues using and benefits from use of CPAP Assessment & Plan (09/23/2023 2:07 PM HOUSING RELOCATION): Patient uses in benefits from CPAP Assessment & Plan (04/02/2023 12:30 PM CDT): Patient's continues to have problems sleeping. Refer him to sleep specialist /display specialist. Patient complains of feeling short of breath when he lies flat patient does have mild sleep apnea on sleep study September 2022 this was done at [facility] Assessment & Plan (03/14/2023 11:10 AM CDT): Patient is having trouble adjusting CPAP machine. Discussed to adjust wearing a mask. Advised the patient's simply put the mask on when he wants television not hooked up CPAP machine he can have the mask on very loosely on his face to get him acclimated to wearing a mask at night when his time to go to bed. Upper respiratory tract infection 01/08/2023 Assessment & Plan (01/08/2023 8:03 AM HOUSING RELOCATION): Acute problem, present times about 1 day Physical examination as documented - no signs/symptoms of serious illness noted COVID 19 and influenza A/B in office - ALL negative Suspect likely viral etiology based on history and physical examination Recommended steroids (with delayed initiation in case his asthma flares) and continued symptom management/monitoring - patient agreeable to plan Discussed sending in prescription for albuterol as needed if asthma flares - patient declines at this time, stating he doesn't think it is necessary at this time Orders for [employer] STAFF to arrange None at this time Orders for Vivek Harrington Lorena to arrange Start prednisone as ordered - complete course, take with food in the morning to prevent stomach upset and insomnia Consider albuterol inhaler as needed Continue OTC medications for symptom management Stay hydrated, eat well, rest as needed Continue monitoring symptoms - report persistent or worsening symptoms to the office or go to ER Follow up as scheduled with Dr. Belle or sooner if necessary Idiopathic gout 05/23/2022 Assessment & Plan (11/09/2024 8:23 AM HOUSING RELOCATION): Zyloprim/allopurinol 300 mg daily as effective in suppressing symptoms. Assessment & Plan (05/23/2022 5:40 PM CDT): Patient is doing very well with respect gout will recheck uric acid level he is maintain on allopurinol and colchicine. Saw a oil truck driver in [place]. Keratosis, seborrheic 02/12/2021 Assessment & Plan (02/12/2021 1:27 PM CDT): Patient has a lesion on his left side of his chest is concerned about is consistent with seborrhea keratosis he is a few places on his back.. Patient's advised no therapy indicated. Exposure to COVID-19 virus 02/12/2021 Assessment & Plan (02/12/2021 1:34 PM CDT): Patient has completed his COVID vaccines. Approximately 1 week prior to his last vaccine he was exposed to someone who had COVID was coughing around him. This patient has remained asymptomatic. There is a concern from his family members because he was around his parents at a family gathering yesterday. Patient a COVID test yesterday and a at a local [facility] have results back until today a tomorrow. Made this patient aware of XLEAR nasal spray/rinse that is been shown to feel COVID for 3-5 day period to time. Pending approval of FDA for treatment COVID. He can pass this information on get this product from any drug store for his parents to use. As a precaution will not cause him any harm. Benign prostatic hyperplasia with post-void drib renae 10/18/2019 Assessment & Plan (05/23/2022 5:36 PM CDT): Medications control symptoms no change in therapy Assessment & Plan (05/15/2020 5:59 PM CDT): Continue Flomax BPH symptoms reasonably controlled Assessment & Plan (01/10/2020 7:00 PM HOUSING RELOCATION): Patient's BPH symptoms greatly improved continue Flomax no change in therapy. Assessment & Plan (10/20/2019 3:45 PM HOUSING RELOCATION): Patient complains of urgency weeks his prostate symptom score is 18 at this time I'm going too start him on Flomax Mild persistent asthma without complication 02/08 Assessment & Plan (11/09/2024 8:16 AM HOUSING RELOCATION): [facility] he is on medication Symbicort for maintenance therapy as well as albuterol HFA he is stable and feels well. Assessment & Plan (09/24/2024 5:00 PM HOUSING RELOCATION): Patient has had increased coughing for the past several days some shortness breath cough is worse when he walks. Worse at night. Cough is nonproductive he is not on ALVARADO inhibitor. Has no fever no chills patient has not been using his albuterol on a routine basis for relief. He is using Symbicort. Patient is advised to start using albuterol more often I want him to use it 3 times a day minimum for the next 3 days . Patient to give me a progress report Friday starting him on prednisone 20 mg twice a day 5 days. Refill albuterol HFA Assessment & Plan (05/03/2024 12:29 PM CDT): Patient is doing well he uses albuterol HFA on a p.r.n. basis with relief of his symptoms when it occurs. Frequency of albuterol less than once a week Assessment & Plan (02/12/2021 1:35 PM CDT): Patient's asthma remains stable no change in therapy. Patient has completed COVID vaccines. Assessment & Plan (10/19/2020 6:22 PM HOUSING RELOCATION): Patient continues do very well of with respect to respiratory problems he is on the Symbicort and this is an excellent therapy for him really has a coughing rarely has shortness of breath. Assessment & Plan (05/15/2020 5:54 PM CDT): Patient's cough is rare he rarely has shortness of breath. Patient doing well is not using inhaler at this time Assessment & Plan (01/10/2020 6:59 PM HOUSING RELOCATION): Patient is doing very well with respect his cough as well as asthma symptoms. No change in therapy. Assessment & Plan (02/25/2019 9:29 AM CDT): He was diagnosed with airway hyperreactivity about 25 years ago while he was in [place]. He was on Advair Diskus for a while but then it was discontinued. He has never had a PFT done. On physical examination he has a minimal wheezing. Pulmonary function testing was ordered. Non-seasonal allergic rhinitis due to pollen Assessment & Plan (02/25/2019 9:26 AM CDT): The patient has a vague history of allergic rhinitis. He has been on allergy pills in the past; however he denies any allergic symptoms at the present time. Abnormal MRI, thoracic spine 05/23/2018 Assessment & Plan (05/23/2018 5:17 PM CDT): Patient MRI of his cervical spine and it shows some abnormal does not upper thoracic spine. More detailed MRI of the thoracic spine was performed was of concern turned out to be an hemangioma. Patient has no thoracic pain at this time he is advised of the findings in is no treatment is indicated for an hemangioma. Medicare annual wellness visit, subsequent 05/08 Assessment & Plan (11/09/2024 8:15 AM HOUSING RELOCATION): History And physical completed patient's health risk assessment health maintenance reviewed and addressed. Patient has had a laminectomy lumbar spine since his last history and physical exam this relieved his back pain. Patient is now under the care of display specialist at [facility] doing well he continues to see Psychiatry for recurrent depression in his very stable Assessment & Plan (09/23/2023 2:06 PM HOUSING RELOCATION): History and physical completed patient's health risk assessment health maintenance reviewed in addressed. Patient's primary health concerns this time he has spinal stenosis appointment coming up in the next few weeks with Neurosurgery. Pain clinic management not been successful. Assessment & Plan (05/23/2022 5:37 PM CDT): History and physical completed patient's health risk assessment health maintenance reviewed in addressed patient's losing weight on purpose and he feels good. Patient has impression he has had a shingles vaccine advised to check with his pharmacy. Assessment & Plan (05/15/2020 5:58 PM CDT): Risk assessment health maintenance reviewed history and physical completed patient is much improved compared to 3 years ago when he was having more asthma problems more rhinitis problems as well as chronic neck pain this is no longer part of his day-to-day health status. Assessment & Plan (04/26/2019 3:11 PM CDT): Patient's exam completed significant findings on exam. Patient's health risk assessment health maintenance reviewed discussed. Laboratory studies a CBC for annual exam BMP in fasting lipid profile as part annual exam as well as VAC is hypertension. Assessment & Plan (05/10/2017 3:41 PM CDT): Physical exam completed appropriate laboratory studies started CMP CBC review previous visit. Immunization brought up-to-date. Discussed patient's sleep problems a greatly improved since his last visit with me he describes he following a more appropriate sleep hygiene past assisting on schedule of going to bed and getting up at particular time. Patient's shoulder pain that was a major problem for him resolved. Former cigarette smoker 11/18/2016 Overview (02/13/2017): Ex-cigarette smoker COPD with acute exacerbation 03/26/2014 Overview (02/13/2017): COPD (chronic obstructive pulmonary disease) Depression 03/26/2014 Overview (02/14/2017): Depression (disease) Assessment & Plan (03/14/2023 11:03 AM CDT): Depression stable he continues under care Psychiatry Assessment & Plan (05/23/2022 5:35 PM CDT): Patient continues under care psychiatrist stable and doing well Assessment & Plan (12/20/2021 12:58 PM HOUSING RELOCATION): Patient's depression stable is still under care of Psychiatry at [facility]. Assessment & Plan (10/19/2020 6:22 PM HOUSING RELOCATION): Patient's depression stable at this time to have times when he is experience in sadness with the holidays and limitation on traveling to see family. Assessment & Plan (05/15/2020 5:53 PM CDT): Depression stable at this time on present medication no change in therapy. Assessment & Plan (04/26/2019 3:14 PM CDT): Patient's managed by psychiatrist conditions stable. Assessment & Plan (10/25/2017 3:02 PM HOUSING RELOCATION): Patient continues sees psychiatrist and psychologist is doing very well with counseling and appropriate medications: Nasal Aga Lamictal and Wellbutrin. Very good mood happy with the quality of life. Patient is concerned about memory loss. mini mental exam was done his score was 30 which is the maximum score indicating no memory deficit up pathological nature strong evidence of dementia significant memory loss. Benign hypertension 03/26/2014 Overview (02/14/2017): BENIGN HYPERTENSION Assessment & Plan (01/19/2025 2:48 PM CDT): Blood pressure slightly elevated 144/60 continue furosemide 20 mg daily metoprolol 50 mg daily verapamil 240 mg daily this is for the visit on 01/2010. No cardiovascular symptoms. Assessment & Plan (11/09/2024 8:27 AM HOUSING RELOCATION): Pressure remains well controlled no change in therapy. 116/68 patient is on verapamil 240 mg daily metoprolol 50 mg daily Assessment & Plan (09/25/2024 6:22 PM HOUSING RELOCATION): Chronic, at goal. BP stable in office today on current therapy. Advised to avoid Sudafed or Sudafed containing products with current URI symptoms, see plan above. No acute findings on exam. CMP from December. Continue metoprolol, Lasix, verapamil as prescribed.low salt diet. Assessment & Plan (05/03/2024 12:32 PM CDT): Blood pressure well controlled patient is tolerating medications metoprolol 50 mg daily cardiac exam 240 mg daily no change in therapy. Patient's EGFR 04/30/2024 was 56 Assessment & Plan (09/07/2023 7:56 PM CDT): BP stable in office today on current therapy. No acute findings on exam. Continue current regimen and low salt diet. Assessment & Plan (07/21/2023 2:17 PM CDT): BP stable in office today on current therapy. No acute findings on exam. Continue current regimen and low salt diet. Assessment & Plan (06/25/2023 2:15 PM CDT): BP stable in office today on current therapy. No acute findings on exam. Continue current regimen and low salt diet. Assessment & Plan (03/14/2023 11:02 AM CDT): Blood pressure remains well controlled patient is tolerating medications no change in therapy Assessment & Plan (05/23/2022 5:36 PM CDT): Blood pressure is well controlled patient is tolerating medications. Assessment & Plan (12/20/2021 11:08 AM HOUSING RELOCATION): BLOOD PRESSURE REMAINS WELL CONTROLLED PATIENT IS TOLERATING MEDICATIONS NO CHANGE IN THERAPY Assessment & Plan (12/14/2020 3:27 PM HOUSING RELOCATION): Blood pressure remains well control no change in therapy. Patient is tolerating medications Assessment & Plan (10/19/2020 6:21 PM HOUSING RELOCATION): Hypertension well controlled patient is tolerating medications no change in therapy. Assessment & Plan (07/06/2020 10:02 AM CDT): BP remains well controlled patient is tolerating medication no change in therapy Assessment & Plan (05/15/2020 5:53 PM CDT): Hypertension well controlled patient is tolerating medications no change in therapy. Assessment & Plan (01/10/2020 6:59 PM HOUSING RELOCATION): Hypertension well controlled patient previously bleed on Bystolic 10 mg per day with samples were given in the past.. Patient will be changed to metoprolol 50 mg per day because of cost of Bystolic. Assessment & Plan (10/20/2019 3:48 PM HOUSING RELOCATION): Hypertension remains well control no change in therapy. Assessment & Plan (04/26/2019 3:14 PM CDT): Hypertension is unchanged. Continue current treatment regimen. Dietary sodium restriction. Weight loss. Regular aerobic exercise. Continue current medications. Blood pressure will be reassessed at the next regular appointment. Assessment & Plan (12/10/2018 5:45 PM HOUSING RELOCATION): Patient's blood pressure is not controlled I discontinued lisinopril because of persistent cough little over 2 weeks ago. He has some abdominal pain blood pressure is significantly elevated at 178/102, lungs are clear no wheezing or rhonchi no murmur gallop. Plans patient given samples of Bystolic 10 mg daily. Please monitor his blood pressure and give his report next several days. Assessment & Plan (10/04/2018 1:43 PM HOUSING RELOCATION): He has high blood pressure which is well controlled on current therapy including verapamil and a relatively low dose of lisinopril. Because of potential interactions between trimethoprim sulfa and lisinopril, we will have him hold the lisinopril for the duration of UTI treatment. Assessment & Plan (05/23/2018 5:19 PM CDT): Hypertension is unchanged. Continue current treatment regimen. Dietary sodium restriction. Weight loss. Regular aerobic exercise. Continue current medications. Blood pressure will be reassessed at the next regular appointment. Assessment & Plan (10/21/2017 10:37 AM HOUSING RELOCATION): Hypertension is unchanged. Dietary sodium restriction. Weight loss. Regular aerobic exercise. Continue current medications. Blood pressure will be reassessed at the next regular appointment. Assessment & Plan (05/10/2017 3:41 PM CDT): Hypertension is unchanged. Continue current treatment regimen. Regular aerobic exercise. Blood pressure will be reassessed at the next regular appointment. History of kidney stones 09/10/1988 Assessment & Plan (09/16/2018 4:57 PM HOUSING RELOCATION): There is a long history of recurring kidney stones, although no symptomatic stones in the last five years or so. If he has a recurrent kidney stone, it might be a nidus of recurring infections. Consider additional workup such as ultrasound depending on the clinical response to therapy. Resolved Problems Problem Noted Date Diagnosed Date Resolved Date Acute non-recurrent maxillary sinusitis 09/17/2024 10/27/2024 Assessment & Plan (09/25/2024 6:19 PM HOUSING RELOCATION): Acute, URI symptoms for 2 weeks. Has tested negative for COVID at home x2. Maxillary tenderness and significant postnasal drip on exam. Also has abrasion to right leg, see plan below. we will prescribe doxycycline as directed. You may take a cough suppressant to calm your cough (Robitussin, delsym, or nyquil). If your cough is productive or you have tight chest congestion with thick mucus- you can use a cough expectorant like Mucinex. Benadryl/Zyrtec/alfredo can be used to dry up a runny nose or post nasal drip. AVOID Sudafed or phenylephrine containing products. Flonase or Nasacort will also help with sinus pressure and nasal drip both. Tylenol/Ibuprofen as needed for pain. Increase fluids (water) Cool mist humidifier at night Use sinus rinses to help flush bacteria and help with congestion. Encouraged honey, marshmallows, gelatin, or chloraseptic to help coat throat. Call with any worsening or persistent symptoms. Edema 10/21/2023 05/03/2024 Assessment & Plan (10/21/2023 6:07 PM HOUSING RELOCATION): Patient has some swelling of his lower legs that he is concerned about really swelling over his feet patient has gained 21 lb since July this is mostly due to less activity he has back pain he is waiting for back surgery in the next 60 days he has been sitting around doing far less activity and doing a lot of eating snacking . But he is foods salty which would lead to some water retention plans at this time get a CMP proBNP to exclude CHF liver failure and renal failure patient is so advised Altered level of consciousness 09/07/2023 09/23/2023 Assessment & Plan (09/07/2023 8:17 PM CDT): Vivid dreams, no memory issues when awake. Family has noticed speech issues on phone, has not noticied any. No other cognitive changes. This all started after he started Flexeril for back pain. No acute findings on exam today, neuro intact. Speech clear. Suspect this is a reaction to the flexeril, stop immediately. See plan for back pain below. Educated patient and on acute stroke symptoms, go to ER if experiencing any of these. Mouth ulcer 07/21/2023 11/09/2024 Assessment & Plan (07/21/2023 2:19 PM CDT): Present for approx 1-2 weeks and hasn't improved with salt water gargles. No acute findings or signs of infection. Advised to clean partial each night. Will rx benzocaine gel as needed. Continue salt water OR baking soda gargles. Call if pain not improved in 2 weeks. Acute bilateral low back trevor n without sciatica 04/02/2023 10/27/2024 Assessment & Plan (09/07/2023 8:13 PM CDT): Managed by pain management (dr. Ceron). Has not gained adequate control with steroid bursts, muscle relaxers, multiple NSAIDs, and PT. XR of lumbar spine in May 2023 showed severe degenerative changes at L5-S1 and moderate facet hypertrophy. MRI has been ordered and is pending insurance approval. Flexeril is causing some questionable altered LOC, stop immediately. Continue Meloxicam and topical pain patches as instructed. Heat/ice as tolerated. Keep follows with pain management as scheduled. Assessment & Plan (07/21/2023 2:17 PM CDT): Dull aching/ tight pain to bilateral lower back worse in the morning. Tylenol and 800mg ibpurofen with mild relief. Heat helps more than ice. Tenderness as noted above, no acute exam findings. XR in May showed moderate degenerative changes. Will switch from 800Ibuprofen to Meloxicam. Heat/ice as tolerated. Given lumbar stretches. Assessment & Plan (05/27/2023 10:57 AM CDT): This patient is not making any significant improvement with his back is approximate 10 weeks now rarely does he have sciatica. Pain is approximate L3 down to L5 paravertebral muscles and over the vertebrae site of pain. He takes 2 800 mg of Motrin in the morning this would last about 6 hours takes 1 in afternoon with not much relief acetaminophen helps him. Patient does not feel sick he has no other bone pain. Minimal get an x-ray of his low back area refer him to a pain clinic at this time. Assessment & Plan (05/17/2023 6:28 PM CDT): Patient did not get much improvement physical therapy for back pain initially prednisone helped him then that wore off. Patient advised me he got volts relief taking 600 mg of ibuprofen several times a day. This time recommend ibuprofen 800 mg 3 times a day on schedule for the next 2-3 weeks. Further recommendations at this time. He has no sciatica with his back pain. And there days he has no pain. Assessment & Plan (04/02/2023 12:38 PM CDT): Back pain approximate 5 days patient's cutting yd last week think this may be related to his onset of back pain. He had some relief from Tylenol arthritis as well as Motrin. Advised patient go to physical therapy learned back exercises that they want to 2 visits should be sufficient. He is had recurrent low back pain in the past but several years. Dyspnea 04/02/2023 05/03/2024 Assessment & Plan (04/02/2023 12:31 PM CDT): Patient complains of shortness of breath when he lies flat he also has sleep apnea recently diagnosed referral display specialist for both problems. Constipation 05/23/2022 05/03/2024 Assessment & Plan (05/23/2022 5:41 PM CDT): Constipation last 4-6 weeks. Patient's colonoscopy is current. He started MiraLax which is helped him. Acute bacterial rhinosinusitis 03/05/2022 05/23/2022 Assessment & Plan (03/05/2022 2:52 PM CDT): Patient presents with congestion, cough and sinus pressure. He reports purulent discharge and no improvement with OTC therapies. He was tested for flue and covid which were negative. Most likely symptoms secondary to acute sinusitis. He was encouraged to begin sinus care as outlined in AVS. He will be sent an antibiotic that he will complete as prescribed. He is to call or return should symptoms worsen or persist. Foot trauma, right, initial encounter 07/11/2021 05/23/2022 Assessment & Plan (07/11/2021 12:48 PM CDT): Patient complains of acute right pain he jammed his foot last week. He also had to do considerable walking in the airport in [place] which aggravated pain even more. Exam this morning 1st metatarsal right warm slightly red. X-rays showed arthritic changes. Lab work from the June 18, 2021 shows elevated uric acid level. Plans at this time Medrol Dosepak. Colchicine 0.6 mg x 2 1st in 1 tablet there to times 10 days. Patient given progress report next week. Right foot pain 06/25/2021 04/02/2023 Assessment & Plan (12/20/2021 1:00 PM HOUSING RELOCATION): Patient's gout and he is under care of Podiatry will check a uric acid level for this information on to his compliance technician patient is very comfortable now with his gout is advised me he is on a particular diet prescribed by his compliance technician. Assessment & Plan (06/29/2021 11:01 AM CDT): Patient presents for follow up on rt foot and ankle pain. Today he states it is feeling better and he is actually able to walk on the foot without pain. He continues however to report pain of the rt lateral malleolus and point tenderness of the rt foot great digit. He has full ROM on exam. Concern for infection appears resolved, with antibitoic. This was discussed with Dr. Shell, who recommends a short trial of steroids as ESR and uric acid elevated, raising concern for gout. Patient was instructed to call with an update on Friday, should he have recurrent pain will refer to ortho for further evaluation and treatment. Assessment & Plan (06/25/2021 2:00 PM CDT): Patient presents with acute right foot that began Friday. See above. Imaging and lab work pending for further evaluation. He will continue with rest, NSAIDs, and elevation. He will complete antibiotics as noted above. Will call or return with fever, increasing pain, redness or swelling. Acute right ankle pain 06/25/202104/02 Assessment & Plan (06/25/2021 1:59 PM CDT): Patient reports last Friday after working he began developing pain in the rt foot and ankle. He noted some swelling and erythema as well. He reports pain is aching and worse with activity. On exam he has pain with dorsiflexion and some erythema of the dorsal aspect of the rt foot and ankle. There is concern for possible cellulitis as noted to have open cut on the rt great toe. We will do imaging to r/o any acute fracture. We will also begin antibiotic therapy. He will have labs to look for any leukocytosis or signs of inflammation. He will follow up in one week or sooner if needed. Ecchymoses, spontaneous 12/14/202004/11 Assessment & Plan (12/14/2020 3:26 PM HOUSING RELOCATION): Patient is a lesion on his left forearm just above the wrist is concerned regarding this finding advised min that this was an ecchymoses in the meaning of this he also has a family history of several people in his family having the same problem. He is also notices skin is becoming thinner which also occurs a some he would aging.. No treatment indicated patient so advised. Fall 04/12/2020 05/15/2020 Assessment & Plan (04/12/2020 9:31 AM CDT): Patient is s/p fall resulting injury to the left great toe. He has noted swelling, erythema, warmth and pain with palpation. We will do xray to r/o any acute fracture. He was encouraged to rest and avoid use. He is to elevate foot to the level of the heart when sitting. He was encouraged to use ice and compression. He can also take tylenol for pain or ibuprofen x 7 days with food. He is to call if symptoms worsen or persist. Cellulitis of great toe of left foot 04/12/2020 05/15/2020 Assessment & Plan (04/12/2020 9:33 AM CDT): Appears to have inflammation and infection noted at site of blister that patient attempted to open on his own. He was instructed to allow blisters to open on their own in the future. There is concern for what appears to be cellulitis at that site of the great toe. Will treat with abx. He is to call if symptoms persist, worsen or he develops fever. Eczema 01/10/2020 05/15/2020 Assessment & Plan (01/10/2020 7:01 PM HOUSING RELOCATION): Eczema on the left shoulder patient given betamethasone 0.05% apply b.i.d. Flu-like symptoms 10/20/2019 01/10/2020 Assessment & Plan (10/20/2019 3:45 PM HOUSING RELOCATION): Patient's flu like symptoms he is advised supportive care Tylenol or Advil Mucinex rest fluids Left foot pain 03/28/2019 04/02/2023 Assessment & Plan (10/19/2020 6:23 PM HOUSING RELOCATION): Patient advised me he is having a bunionectomy in the next 2 months. Assessment & Plan (07/06/2020 10:01 AM CDT): Left great toe pain as well as metatarsal pain. Number membranous jamming his foot in removed remote past. Patient is able to walk on his stand under at times without pain other times her some considerably.. No redness today this no heat no swelling to the area. Is tenderness on palpating over the 1st metatarsal and great toe.. Has at this time check a uric acid level in x-ray of his foot having this see podiatry had do not think he has gout. Assessment & Plan (04/26/2019 3:15 PM CDT): Patient right foot pain resolve no precise etiology found he did have arthritis in his foot but area arthritis was not consistent where pain. Assessment & Plan (03/28/2019 6:50 PM CDT): Right foot pain patient twisted his foot some yd work few weeks ago his pain for 1/3 to 5th metatarsal. He is taking 1 Naprosyn per day this is helping he had gone to the urgent care facility where they recommended this. Review of his chart is x-ray at the urgent care facility is limited to his ankle. X-ray of his right foot was performed no acute fracture seen or fractures when he can seen. BMI 33.0-33.9,adult 02/25/2019 03/23/20 25 Assessment & Plan (02/25/2019 9:30 AM CDT): He has gained about 20 lb since a months ago. Weight management counseling was provided for 10 min. Lifestyle change and diet modification were discussed with the patient in detail. Influenza A 01/23/2019 03/23/2019 Assessment & Plan (01/23/2019 1:41 PM CDT): Patient is symptomatic approximately 36 hours of flu symptoms feeling fatigue hot cold aching run down coughing. Patient's positive for influenza A he started on Tamiflu 75 mg twice a day b.i.d. X5 days.. Advised if he becomes worse he will need to go to hospital and do not anticipate this will happen. Pulmonary infiltrate in righ t lung on chest x-ray 01/23/2019 05/15/2020 Assessment & Plan (01/23/2019 1:41 PM CDT): Patient has had a chronic cough his upcoming appointment with display specialist. Had a chest x-ray today because he was feeling so bad and has a positive influenza a chest x-ray reveals a infiltrate on right lower lobe possible atelectasis. Patient is given Levaquin 75 mg twice a day for 5 days. Abdominal pain 12/10/2018 05/15/2020 Assessment & Plan (12/10/2018 5:45 PM HOUSING RELOCATION): Forty-five days ago patient start of nausea following vomiting and diarrhea.. Diarrhea is no longer present occasional nausea vomiting has stopped. Patient has pain in epigastric area down to the umbilicus can be sharp for few seconds other times dull tender to touch over this area. He has no rebound tenderness is a hernia present ventral hernia pressure. Bowel sounds are normal. Blood pressures strong really high did an ultrasound of his aorta was negative. And resume blood pressure medications. Patient understands if his conditions increase in intensity pain other complications good emergency room. Patient is given Dexilant concern whether not he has a minor tear in his esophagus repeated vomiting. Chronic cough 10/12/2018 05/15/2020 Assessment & Plan (05/19/2019 3:38 PM CDT): Patient advised me his cough is returned he has upcoming appointment pulmonology.. He notices cough after going to [employer] and there was some perfume the was around think dozen allergies situation set him off.. Advised me that the Spiriva has helped him with breathing and coughing and chest tightness.. This is for the visit 05/04/2019. Patient to continue Spiriva is given a prednisone 20 mg twice a day for 5 days. Assessment & Plan (04/26/2019 3:15 PM CDT): Patient's chronic cough is greatly improved now follow-up by Pulmonary for this particular problem. Assessment & Plan (02/25/2019 9:28 AM CDT): Etiology of chronic cough could be due to multiple factors includin. Airway hyperreactivity/asthma, 2. Allergic rhinitis. He was on lisinopril for a while but it was discontinued about 3 months ago. Chest x-ray in January 2019 has shown no active pulmonary disease. He was advised to continue with Spiriva Respimat. PFT, CBC and BMP were ordered. We will also consider HRCT if he continues with cough. Assessment & Plan (12/10/2018 5:45 PM HOUSING RELOCATION): Patient reports his coughing is improving he is off the lisinopril now. He give me a progress report in about 2 weeks regarding his coughing. Assessment & Plan (11/19/2018 6:18 PM HOUSING RELOCATION): Patient Advair helped him some. I reviewed his medicine again which I done before notice that he is on lisinopril. Patient has been does help meters cough has been productive in talking with the day I am get the idea that is more nonproductive. There form discontinue lisinopril advised him this blood per pressure with may come up some. Advised that his cough should go away in 4 weeks more likely 2 weeks of his lisinopril. He has no improvement 3 weeks in the cough he needs to call me and proceed with a referral to pulmonology.. I did give him samples of trilogy 1 puff daily. Assessment & Plan (11/09/2018 5:55 PM HOUSING RELOCATION): Patient having persistent cough. Today reveals some me this cough started in the mid a is seasonal. Albuterol never he helped him to a satisfactory level . Patient indicates Tessalon Perles no no longer effective. He informs me for the 1st time he has had this cough since the s. Moved to [facility] display specialist at that time had many tests done . Patient informs me that the cough is seasonal. He describes the medications sounds like possible Spiriva there was use in the past that did help him. Patient advised me he even had a cardiac catheterization trying to see if this cough was secondary to cardiac etiology. The results were completely normal. At this time I gave him samples of Spiriva Respimat 2.5 mcg Assessment & Plan (10/20/2018 12:34 PM HOUSING RELOCATION): Patient's cough for coughing up clear sputum persistent cough no actual chest pain. Some slight degree of shortness of breath at times . Coughing is keeping up at night. Plans at this time Tessalon Perles 200 mg t.i.d. p.r.n. for 7 days progress report in 48 hr chest x-ray. Patient has no fever no chills he did wake up this morning with profuse sweating but does know temperature in office today. Assessment & Plan (10/12/2018 5:32 PM HOUSING RELOCATION): Lot of congestion in his chest he is coughing in at night is keeping him up. Not sick no fever no chills no night sweats no nausea vomiting use aggravating cough at night. Exam benign head ears eyes nose and throat normal lungs some congestion in his chest no wheezing rhonchi no murmur gallop. Patient recently supposed to a relative who had bronchitis at [facility].. Plans trial of Robitussin DM progress report in 48 hr at this fails I will give him Tessalon Perles. Acute cystitis without hematuria 09/13/2018 03/23/2019 Assessment & Plan (09/16/2018 4:55 PM HOUSING RELOCATION): He has a history of recurring urinary tract infections. Current symptoms began about two days ago. He has had no fever. He has had some bladder pressure, some mild dysuria, but no hematuria. The prostate is normal on exam. He does have a history of frequent kidney stones in the past, but none in the last five years or so. This might be a risk factor for recurring urinary infections. We will check a urinalysis with reflex microscopic and culture. Because his symptoms are fairly typical, will send in a prescription for trimethoprim sulfa. Interestingly, about three months ago, he was evaluated for urinary tract symptoms and the urinalysis was positive but culture was negative. Depending on the results this time and the response to treatment, additional workup may be needed. Urinary tract infection without hematuria 07/01/2018 03/23/2019 Assessment & Plan (07/01/2018 6:21 PM CDT): Patient is urinary tract symptoms urgency frequency dysuria all x3 days no flank pain no back pain some suprapubic discomfort. No history of recurrent UTIs. Plans UA with culture and sensitivity Bactrim DS 1 tablet twice a day. Patient's contact being if he is still symptomatic after 48-72 hours without improvement. Colon cancer screening 06/30/201805/15 Assessment & Plan (07/01/2018 6:22 PM CDT): Patient's need a repeat colon cancer screening he is asymptomatic will set this up by referral to ambulatory GI. Falling episodes 04/30/2018 01/10/2020 Assessment & Plan (05/23/2018 5:18 PM CDT): Patient has had no more falling spells, he is reviewed circumstances very hot he was really doing more knee should he is in the process of doing a lot of moving using a lot of stress not giving attention to details he has all these things combat contributed to his falling. He is comfortable with this pain level is dialysis excellent he feels well further treatment evaluation needed. Assessment & Plan (05/06/2018 6:43 PM CDT): No further falls since his last visit a few days ago he is feeling much better. Assessment & Plan (04/30/2018 6:21 PM CDT): Patient is seen emergency room yesterday because of gait disturbance and falling. According to the ER records he has been having some gait disturbance of several days. Patient is here with with his lady friend lives with advised me he has had 2 sudden episodes of fall the past few days. The episode yesterday he has slight bit of the was losing balance. On both occasions he felt like his legs suddenly gave out from him he went to ground. Had no headaches no nausea no vomiting no double vision no palpitations no chest discomfort. Sudden onset of leg weakness. He has evaluation emergency room occluded a CT scan of his head which was negative laboratory studies were negative and vitals excellent. He is told by 2 physician ER he needed MRI. Assessment patient is having sudden falling or drop attacks get a MRI of his head and neck. Since his chronic neck pain. Patient has no cardiovascular symptoms. Neck pain 04/30/2018 05/23/2022 Assessment & Plan (10/19/2020 6:24 PM HOUSING RELOCATION): Patient having neck pain which started last few weeks neck pain is specifically related to position. He advised me he is holding his I pad and a certain position hold his head reading you developed a neck pain. Is no pain on range of motion pain is not reproducible on palpating x-rays not clinically indicated patient has no neuropathy symptoms.. Patient advised he has to change habits in weight holes his head and possible topical ointments may help his pain Assessment & Plan (05/23/2018 5:16 PM CDT): Patient's chronic neck pain is greatly improved. At the time he had a flare-up his neck pain was in the lot of stress he was moving from 1 house to another was very hot when he was doing all is of physical activity. He has returned to baseline is comfortable with this status regarding his neck and back pain. Assessment & Plan (05/06/2018 6:44 PM CDT): Patient's neck pain is improved. His MRI of his neck was abnormal showing spinal stenosis. Also in abnormality was noted as upper thoracic area suggesting stenosis and radiologist strongly suggested MRI of his thoracic spine with and without contrast. Over for the MRI of thoracic spine has been completed. Patient this time is comfortable he has been using a cervical collar at times he thinks has helped him considerably. Assessment & Plan (04/30/2018 6:22 PM CDT): Patient is having worsening neck pain and neck pain is chronic and is getting worse. Now having drop attack if he is having a vertebral artery insufficiency. Not aware of what whether not he has some to Toshia score causing the drop attacks will get an MRI of his neck as well. Contact with and (suspected) exposure to other communicable diseases 05/08/2017 03/23/2019 Assessment & Plan (05/10/2017 3:40 PM CDT): HIV ANTIBODY LAB REQUESTED RECOMMENDED BY CDC GUIDELINES .Hepatitis C antibody will be ordered as recommended by CDC. Right shoulder pain 11/18/2016 05/23/20 Overview (02/13/2017): Shoulder pain Assessment & Plan (12/20/2021 1:02 PM HOUSING RELOCATION): Patient continues to have some right shoulder pain. Pain is most noticeable range of motion laterally about 90 . X-ray of his right shoulder. Refer patient to physical therapy. Assessment & Plan (06/18/2021 5:20 PM CDT): Patient developed acute right shoulder pain several days ago without any precise trauma.. Exam patient has pain about 30 laterally on range of motion allow click and pop occurred during exam. Pain continued all would through about 110 range of motion pain released. Pain is on her lateral upper humerus at the shoulder pain some mild pain on palpating no other abnormalities noted no redness no swelling. Plans at this time treat this gentleman with Naprosyn 500 mg twice a day daily for the next 15 days progress report at in the 15 days. Patient is given a 30 day supply. Restless legs syndrome 03/26/201405/15 Overview (02/14/2017): Restless leg syndrome Assessment & Plan (04/26/2019 3:11 PM CDT): Symptoms of restless leg a stable at this time. Immunizations Immunization Administration Dates Next Due Hep A / Hep B 06/08/2024,09/02/2023 Influenza, Quadrivalent, Hig h Dose, Preservative Free, Intrr 08/20/2023,08/01/2022,09/10/2021,07/19 Influenza, Trivalent, Adjuva nted, Intramuscular 07/27/2019 Influenza, Trivalent, High D ose, Split, Preservative Free, Intramuscular 08/11/2024,07/27/2019,08/10/2018,07/14,07/13/2015 Moderna SARS-CoV-2 Monovalen t Vaccination (12+ YRS) 01/09/2021,12/07/2020 Pneumococcal Conjugate PCV 13 04/13/2015 Pneumococcal Conjugate Pcv20 02/25/2022 Pneumococcal Polysaccharide PPV23 05/08/2017 RSV Vaccine, Pref, Recombina nt, Subunit, Adjuvanted, PF, IM (Arexvy) 08/20/2023 Tdap 06/13/2023,09/12/2016 ZOSTER Recombinant 08/11/2024,08/20/2023 Social History Tobacco Use Types Packs/Day Years Used Date Smoking Tobacco: Former Smokeless Tobacco: Former Tobacco Cessation:Counseling Given: Not Answered Alcohol Use Standard Drinks/Week Comments Yes 0 (1 standard drink = 0.6 oz pur e alcohol) occassional PHQ-2 Answer Date Recorded PHQ-2 Total Score (If total score is 3 or more points, staff should administer the PHQ-9) 1 10/26/2024 PHQ-9 Answer Date Recorded PHQ-9 Total Score 6 10/26/2024 Sex and Gender Information Value Date Recorded Sex Assigned at Not on file Legal Sex Male 11:09 AM HOUSING RELOCATION Gender Identity Male 10/11/2021 10:38 AM HOUSING RELOCATION Sexual Orientation Straight 10/11/2021 10 :38 AM HOUSING RELOCATION 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 Not on file Not on file Not on file Last Filed Vital Signs Vital Sign Reading Time Taken Comments Blood Pressure 138/60 03/23/2025 8:44 AM CDT Pulse 67 03/23/2025 8:44 AM CDT Temperature 36 C (96.8 F) 03/23/2025 8:44 AM CDT Respiratory Rate 16 03/23/2025 8:44 AM CDT Oxygen Saturation 97% 03/23/2025 8:44 AM CDT Inhaled Oxygen Concentration - - Weight 107.7 kg (237 lb 6.4 oz) 03/23/2025 8:44 AM CDT Height 185.4 cm (6' 1) 03/23/2025 8:44 AM CDT Body Mass Index 31.32 03/23/2025 8:44 AM CDT Plan of Treatment Not on file Procedures Procedure Name Priority Date/Time Associated Diagnosis Comments POC INFLUENZA A/B, COVID-19 ANTIGEN Routine 03/23/2025 8:50 AM CDT Upper respiratory tract infection, unspecified type US ABDOMINAL AORTA Schedule MELLISA, Read MELLISA (Appt Today, Awaiting Results) 12/10/2018 10:15 AM HOUSING RELOCATION Abdominal pain, unspecified abdominal location COLONOSCOPY Routine 09/22/2018 HEPATITIS C ANTIBODY Routine 05/08/2017 10:05 AM CDT from Last 3 Months or Most Recently Relevant to Health Maintenance Results * POC Influenza A/B, COVID-19 antigen (03/23/2025 8:50 AM CDT) Pathologist [facility] Influenza A Ag, POC Negative Negative [facility]MS [facility] Influenza B Ag, POC Negative Negative [facility]MS [facility] COVID-19 Ag POC Presumptive Negative Presumptive Negative, Invalid [facility] Nasopharyngeal 03/23/2025 8: 50 AM CDT Yessenia Florentino DIGITAL COLOR PRESS OPERATOR POINT OF CARE TEST ORDERABLES Fi nal Result [facility] [address] [place] [phone] * US Abdominal Aorta (12/10/2018 10:15 AM HOUSING RELOCATION) Anatomical Region Laterality Modality Abdomen N/A Ultrasound Impressions 12/10/2018 3:32 PM HOUSING RELOCATION No sonographic evidence of abdominal aortic aneurysm. 5.6 x 5.8 cm simple cyst of the left inferior kidney noted. Common iliac arteries are prominent measuring upwards of 1.3 cm in diameter. Narrative 12/10/2018 3:32 PM HOUSING RELOCATION Examination demonstrates the abdominal aorta to have a normal caliber with no evidence of aneurysmal dilatation or retroperitoneal hemorrhage. The superior, mid, and distal abdominal aorta measure 2.6 cm, 2.1 cm, and 2.0 cm maximum AP dimensions. Simple cyst of the left inferior kidney noted measuring 5.6 x 5.2 x 5.8 cm. The common iliac arteries measure upwards of 1.3 cm in diameter. Chevy Belle MD IMG US PROCEDURES Final Re sult * COLONOSCOPY (09/22/2018) Pathologist [facility] Colonoscopy Normal Historical Provider HEALTH MAINTENANCE Final Result * Hepatitis C antibody (05/08/2017 10:05 AM CDT) Pathologist [facility] Hep C Ab Negative Negative [facility] Blood specimen (specimen) 05/08/2017 10:05 AM CDT 05/08/2017 8:17 PM CDT Chevy Belle MD LAB MICROBIOLOGY - GENERAL ORDERABLES Final Result [facility] [id number] Department [place] [address] from Last 3 Months or Most Recently Relevant to Health Maintenance Insurance UHC MEDICARE ADVANTAGE [facility] [place] [address] [facility] MEDICARE ADVANTAGE Care Teams Rotary Drum Dyer Relationship Specialty Start Date End Date Chevy Belle MD PCP - General 02/07/17 Farhana Ceron MD [address] [place] [address] Surgeon Anesthesiology 09/07/23 Yumi Carrion MD [address] [facility] [address] [place] [address] Consulting Physician Critical Care Med 11/25/24
--- OUTSIDE RECORDS SUMMARY | 2025-05-11 13:14 | XMS_ITS | Clinical Summary ---
Author Organization [facility] Address [address] [place] [phone] Care Team Providers Care Machine Coil Assembler Name Role Phone Chevy Belle MD Primary Care Provider [phone] Farhana Ceron MD Unavailable [phone] Yumi Carrion MD Unavailable [phone] Allergies Active Allergy Reactions Criticality Noted Date [...] 11/09/2024 Assessment & Plan (11/09/2024 8:21 AM CONTROLS DESIGN ENGINEER): Colonoscopy current polyps found no cancer found patient has developed constipation given Linzess 145 mg use once a day as needed samples of 12 given, date of 10 26 2024 Recurrent major depressive disorder, in remissio n 11/09/2024 Assessment & Plan (11/09/2024 8:26 AM CONTROLS DESIGN ENGINEER): Patient states mood is very good he continues under the care of Dr. Conrado Hughes [facility]. He is on Wellbutrin 300 mg daily, Klonopin 0.5 mg p.r.n. Lamictal 200 mg daily Abrasion of anterior right lower leg 09/25/2024 Assessment & Plan (09/25/2024 6:21 PM CONTROLS DESIGN ENGINEER): Acute, sustained 3 days ago while working [...] 10/21/2023 Assessment & Plan (10/21/2023 6:11 PM CONTROLS DESIGN ENGINEER): Patient has some swelling of his lower [...] indicated Assessment & Plan (10/14/2023 4:51 PM CONTROLS DESIGN ENGINEER): Bilateral lower extremity edema x 1 month. [...] asymptomatic Assessment & Plan (09/23/2023 2:09 PM CONTROLS DESIGN ENGINEER): Patient has been referred by [facility] pain [facility] to Neurosurgery in [place]. Patient did not get significant relief from [...] 03/14/2023 Assessment & Plan (11/09/2024 8:16 AM CONTROLS DESIGN ENGINEER): Patient continues using and benefits from use of CPAP Assessment & Plan (09/23/2023 2:07 PM CONTROLS DESIGN ENGINEER): Patient uses in benefits from CPAP Assessment & Plan (04/02/2023 12:30 PM CDT): Patient's continues to have problems sleeping. Refer him to sleep specialist /motion picture set grip. Patient complains of feeling short of breath when he lies flat patient does have mild sleep apnea on sleep study September 2022 this was done at [facility] Assessment & Plan (03/14/2023 11:10 AM CDT): [...] 01/08/2023 Assessment & Plan (01/08/2023 8:03 AM CONTROLS DESIGN ENGINEER): Acute problem, present times about 1 day [...] None at this time Orders for Vivek Carrillo to arrange Start prednisone as ordered - [...] 05/23/2022 Assessment & Plan (11/09/2024 8:23 AM CONTROLS DESIGN ENGINEER): Zyloprim/allopurinol 300 mg daily as effective in suppressing symptoms. Assessment & Plan (05/23/2022 5:40 PM CDT): Patient is doing very well with respect gout will recheck uric acid level he is maintain on allopurinol and colchicine. Saw a nylon winder in [place]. Keratosis, seborrheic 02/12/2021 Assessment & Plan (02/12/2021 [...] test yesterday and a at a local [facility] 1 have results back until today a [...] controlled Assessment & Plan (01/10/2020 7:00 PM CONTROLS DESIGN ENGINEER): Patient's BPH symptoms greatly improved continue Flomax no change in therapy. Assessment & Plan (10/20/2019 3:45 PM CONTROLS DESIGN ENGINEER): Patient complains of urgency weeks his prostate symptom score is 18 at this time I'm going too start him on Flomax Mild persistent asthma without complication 02/08 Assessment & Plan (11/09/2024 8:16 AM CONTROLS DESIGN ENGINEER): [facility] he is on medication Symbicort for maintenance therapy as well as albuterol HFA he is stable and feels well. Assessment & Plan (09/24/2024 5:00 PM CONTROLS DESIGN ENGINEER): Patient has had increased coughing for the [...] no change in therapy. Patient has completed COVSykio vaccines. Assessment & Plan (10/19/2020 6:22 PM CONTROLS DESIGN ENGINEER): Patient continues do very well of with [...] time Assessment & Plan (01/10/2020 6:59 PM CONTROLS DESIGN ENGINEER): Patient is doing very well with respect his cough as well as asthma symptoms. No change in therapy. Assessment & Plan (02/25/2019 9:29 AM CDT): He was diagnosed with airway hyperreactivity about 25 years ago while he was in [place]. He was on Advair Diskus for a [...] 05/08 Assessment & Plan (11/09/2024 8:15 AM CONTROLS DESIGN ENGINEER): History And physical completed patient's health risk assessment health maintenance reviewed and addressed. Patient has had a laminectomy lumbar spine since his last history and physical exam this relieved his back pain. Patient is now under the care of motion picture set grip at [facility] doing well he continues to see Psychiatry for recurrent depression in his very stable Assessment & Plan (09/23/2023 2:06 PM CONTROLS DESIGN ENGINEER): History and physical completed patient's health risk [...] well Assessment & Plan (12/20/2021 12:58 PM CONTROLS DESIGN ENGINEER): Patient's depression stable is still under care of Psychiatry at [facility] in [place]. Assessment & Plan (10/19/2020 6:22 PM CONTROLS DESIGN ENGINEER): Patient's depression stable at this time to have times when he is experience in sadness with the holidays and limitation on traveling to see family. Assessment & Plan (05/15/2020 5:53 PM CDT): Depression stable at this time on present medication no change in therapy. Assessment & Plan (04/26/2019 3:14 PM CDT): Patient's managed by psychiatrist conditions stable. Assessment & Plan (10/25/2017 3:02 PM CONTROLS DESIGN ENGINEER): Patient continues sees psychiatrist and psychologist is [...] symptoms. Assessment & Plan (11/09/2024 8:27 AM CONTROLS DESIGN ENGINEER): Pressure remains well controlled no change in therapy. 116/68 patient is on verapamil 240 mg daily metoprolol 50 mg daily Assessment & Plan (09/25/2024 6:22 PM CONTROLS DESIGN ENGINEER): Chronic, at goal. BP stable in office [...] medications. Assessment & Plan (12/20/2021 11:08 AM CONTROLS DESIGN ENGINEER): BLOOD PRESSURE REMAINS WELL CONTROLLED PATIENT IS TOLERATING MEDICATIONS NO CHANGE IN THERAPY Assessment & Plan (12/14/2020 3:27 PM CONTROLS DESIGN ENGINEER): Blood pressure remains well control no change in therapy. Patient is tolerating medications Assessment & Plan (10/19/2020 6:21 PM CONTROLS DESIGN ENGINEER): Hypertension well controlled patient is tolerating medications no change in therapy. Assessment & Plan (07/06/2020 10:02 AM CDT): BP remains well controlled patient is tolerating medication no change in therapy Assessment & Plan (05/15/2020 5:53 PM CDT): Hypertension well controlled patient is tolerating medications no change in therapy. Assessment & Plan (01/10/2020 6:59 PM CONTROLS DESIGN ENGINEER): Hypertension well controlled patient previously bleed on Bystolic 10 mg per day with samples were given in the past.. Patient will be changed to metoprolol 50 mg per day because of cost of Bystolic. Assessment & Plan (10/20/2019 3:48 PM CONTROLS DESIGN ENGINEER): Hypertension remains well control no change in therapy. Assessment & Plan (04/26/2019 3:14 PM CDT): Hypertension is unchanged. Continue current treatment regimen. Dietary sodium restriction. Weight loss. Regular aerobic exercise. Continue current medications. Blood pressure will be reassessed at the next regular appointment. Assessment & Plan (12/10/2018 5:45 PM CONTROLS DESIGN ENGINEER): Patient's blood pressure is not controlled I [...] days. Assessment & Plan (10/04/2018 1:43 PM CONTROLS DESIGN ENGINEER): He has high blood pressure which is [...] appointment. Assessment & Plan (10/21/2017 10:37 AM CONTROLS DESIGN ENGINEER): Hypertension is unchanged. Dietary sodium restriction. Weight loss. Regular aerobic exercise. Continue current medications. Blood pressure will be reassessed at the next regular appointment. Assessment & Plan (05/10/2017 3:41 PM CDT): Hypertension is unchanged. Continue current treatment regimen. Regular aerobic exercise. Blood pressure will be reassessed at the next regular appointment. History of kidney stones 09/10/1988 Assessment & Plan (09/16/2018 4:57 PM CONTROLS DESIGN ENGINEER): There is a long history of recurring [...] 10/27/2024 Assessment & Plan (09/25/2024 6:19 PM CONTROLS DESIGN ENGINEER): Acute, URI symptoms for 2 weeks. Has [...] 05/03/2024 Assessment & Plan (10/21/2023 6:07 PM CONTROLS DESIGN ENGINEER): Patient has some swelling of his lower [...] also has sleep apnea recently diagnosed referral motion picture set grip for both problems. Constipation 05/23/2022 05/03/2024 Assessment [...] do considerable walking in the airport in [place] which aggravated pain even more. Exam this [...] 04/02/2023 Assessment & Plan (12/20/2021 1:00 PM CONTROLS DESIGN ENGINEER): Patient's gout and he is under care of Podiatry will check a uric acid level for this information on to his manufacturing sales representative patient is very comfortable now with his gout is advised me he is on a particular diet prescribed by his manufacturing sales representative. Assessment & Plan (06/29/2021 11:01 AM CDT): [...] 12/14/202004/11 Assessment & Plan (12/14/2020 3:26 PM CONTROLS DESIGN ENGINEER): Patient is a lesion on his left [...] 05/15/2020 Assessment & Plan (01/10/2020 7:01 PM CONTROLS DESIGN ENGINEER): Eczema on the left shoulder patient given betamethasone 0.05% apply b.i.d. Flu-like symptoms 10/20/2019 01/10/2020 Assessment & Plan (10/20/2019 3:45 PM CONTROLS DESIGN ENGINEER): Patient's flu like symptoms he is advised supportive care Tylenol or Advil Mucinex rest fluids Left foot pain 03/28/2019 04/02/2023 Assessment & Plan (10/19/2020 6:23 PM CONTROLS DESIGN ENGINEER): Patient advised me he is having a [...] a chronic cough his upcoming appointment with motion picture set grip. Had a chest x-ray today because he was feeling so bad and has a positive influenza a chest x-ray reveals a infiltrate on right lower lobe possible atelectasis. Patient is given Levaquin 75 mg twice a day for 5 days. Abdominal pain 12/10/2018 05/15/2020 Assessment & Plan (12/10/2018 5:45 PM CONTROLS DESIGN ENGINEER): Forty-five days ago patient start of nausea [...] pulmonology.. He notices cough after going to [place] and there was some perfume the was [...] cough. Assessment & Plan (12/10/2018 5:45 PM CONTROLS DESIGN ENGINEER): Patient reports his coughing is improving he is off the lisinopril now. He give me a progress report in about 2 weeks regarding his coughing. Assessment & Plan (11/19/2018 6:18 PM CONTROLS DESIGN ENGINEER): Patient Marahair helped him some. I reviewed his medicine [...] daily. Assessment & Plan (11/09/2018 5:55 PM CONTROLS DESIGN ENGINEER): Patient having persistent cough. Today reveals some me this cough started in the mid a is seasonal. Albuterol never he helped him to a satisfactory level . Patient indicates Tessalon Perles no no longer effective. He informs me for the 1st time he has had this cough since the mid 80s. Moved to [facility] motion picture set grip at that time had many tests done [...] mcg Assessment & Plan (10/20/2018 12:34 PM CONTROLS DESIGN ENGINEER): Patient's cough for coughing up clear sputum [...] today. Assessment & Plan (10/12/2018 5:32 PM CONTROLS DESIGN ENGINEER): Lot of congestion in his chest he [...] to a relative who had bronchitis at [facility].. Plans trial of Robitussin DM progress report in 48 hr at this fails I will give him Tessalon Perles. Acute cystitis without hematuria 09/13/2018 03/23/2019 Assessment & Plan (09/16/2018 4:55 PM CONTROLS DESIGN ENGINEER): He has a history of recurring urinary [...] 05/23/2022 Assessment & Plan (10/19/2020 6:24 PM CONTROLS DESIGN ENGINEER): Patient having neck pain which started last [...] by CDC. Right shoulder pain 11/18/2016 05/23/20 22 Overview (02/13/2017): Shoulder pain Assessment & Plan (12/20/2021 1:02 PM CONTROLS DESIGN ENGINEER): Patient continues to have some right shoulder [...] restless leg a stable at this time. Encounters Date Type Department Care Team Description 04/14/2025 Telephone [facility] Medical [facility] [address] [place] [phone] Chevy Belle MD pulle groin muscle 03/23/2025 9:00 AM CDT Office Visit [facility] [address] [place] [phone] Yessenia Florentino NP Upper respiratory tract infection, unspecified type (Primary Dx); Mild persistent asthma with (acute) exacerbation from Last 3 Months Immunizations Immunization Administration Dates Next Due Hep [...] (Arexvy) 08/20/2023 Tdap 06/13/2023,09/12/2016 ZOSTER Recombinant 08/11/2024,08/20/2023 Surgical History Surgery Date Site/Laterality Comments URETERAL STENT PLACEMENT 11/10/1999 - 11/09/2000 [facility] Medical History Medical History Date Comments Urolithiasis Multiple recurre nces, laser kidney stone removal in 1999. Benign hypertension 03/26/2014 BENIGN HYPER TENSION Depression 03/26/2014 Depression (dise ase) Restless legs syndrome 03/26/2014 Restless leg syndrome Family History Medical History Relation Name Comments Pacemaker Father AICD Colectomy Mother Details lacking . 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 Not on file Not on file Not on file Obstetrics History Last Filed Vital Signs Vital Sign Reading [...] 03/23/2025 8:44 AM CDT Plan of Treatment Health Maintenance Due Date Last Done Comments Covid-19 Vaccine (2023-12 5 season) 2025 08/18/2024, 09/02/2023, 09/03/2022, Additional history exists Influenza Vaccine (#1) 2025 , 08/20/2023, 08/01/2022, Additional history exists Depression Screening 10/26/2025 10/26/2024, 10/26/2024, 09/22/2023, Additional history exists Fall Risk Assessment 10/26/2025 10/26/2024, 09/22/2023, 05/23/2022, Additional history exists Well Visit 65+ 10/26/2025 10/26/2024, 09/10, 05/23/2022, Additional history exists DTaP/Tdap/Td Vaccine (3 - Td or Tdap) 06/13/2033 06/13/2023, 09/12/2016 Hepatitis C Screening Completed 05/08/2017 Colon Cancer Screening-CT Colonography Discontinued 09/22/2018 Colon Cancer Screening-Colonoscopy Discontinued 09/22/2018 Colon Cancer Screening-DNA Stool Discontinued 09/22/20 18 Colon Cancer Screening-FIT Discontinued 09/22/2018 Colon Cancer Screening-FOBT Discontinued 09/22/2018 Colon Cancer Screening-Sigmoidoscopy Discontinued 09/22/2018 Colorectal Cancer Screening Discontinued Abdominal Aortic Aneurysm (A AA) Screen Completed 12/10/2018 Pneumococcal vaccine 65+ Completed 022, 05/08/2017, 04/13/2015 Hepatitis B Screening Completed 06/08/2024, 023 Zoster Vaccine Completed 08/11/2024, 08/20/2023 Procedures Procedure Name Priority Date/Time Associated Diagnosis Comments POC INFLUENZA A/B, COVID-19 ANTIGEN Routine 03/23/2025 8:50 AM CDT Upper respiratory tract infection, unspecified type US ABDOMINAL AORTA Schedule MELLISA, Read MELLISA (Appt Today, Awaiting Results) 12/10/2018 10:15 AM CONTROLS DESIGN ENGINEER Abdominal pain, unspecified abdominal location HM COLONOSCOPY Routine 09/22/2018 HEPATITIS C ANTIBODY Routine 05/08/2017 10:05 AM CDT from Last 3 Months or Most Recently Relevant to Health Maintenance Results * POC Influenza A/B, COVID-19 antigen (03/23/2025 8:50 AM CDT) Pathologist [facility] Influenza A Ag, POC Negative Negative AMS [facility] FM Influenza B Ag, POC Negative Negative AMS [facility] COVID-19 Ag POC Presumptive Negative Presumptive Negative, Invalid AMS [facility] Nasopharyngeal 03/23/2025 8: 50 AM CDT Yessenia Florentino [facility] POINT OF CARE TEST ORDERABLES Fi nal Result [facility] [address] [place] [phone] * US Abdominal Aorta (12/10/2018 10:15 AM CONTROLS DESIGN ENGINEER) Anatomical Region Laterality Modality Abdomen N/A Ultrasound Impressions 12/10/2018 3:32 PM CONTROLS DESIGN ENGINEER No sonographic evidence of abdominal aortic aneurysm. 5.6 x 5.8 cm simple cyst of the left inferior kidney noted. Common iliac arteries are prominent measuring upwards of 1.3 cm in diameter. Narrative 12/10/2018 3:32 PM CONTROLS DESIGN ENGINEER Examination demonstrates the abdominal aorta to have [...] PROCEDURES Final Re sult * COLONOSCOPY (09/22/2018) Colonoscopy Normal Jannette Provider HEALTH MAINTENANCE Final Result * Hepatitis C antibody (05/08/2017 10:05 AM CDT) Hep C Ab Negative Negative [facility] Blood specimen (specimen) 05/08/2017 10:05 AM CDT 05/08/2017 8:17 PM CDT Chevy Belle MD LAB MICROBIOLOGY - GENERAL ORDERABLES Final Result [facility] [id number] Department [place] [address] from Last 3 Months or Most Recently Relevant to Health Maintenance Insurance UHC MEDICARE ADVANTAGE [facility] MEDICARE ADVANTAGE [facility] MEDICARE ADVANTAGE Care Teams Machine Coil Assembler Relationship Specialty Start Date End Date Chevy Belle MD PCP - General 02/07/17 Farhana Ceron MD [address] [place] [address] Surgeon Anesthesiology 09/07/23 Yumi Carrion MD [address] [place] [address] Consulting Physician Critical Care Med 11/25/24
--- OUTSIDE RECORDS SUMMARY | 2025-05-11 13:14 | XMS_ITS | Encounter Summary ---
Author Organization [facility] Address [address] [place] [address] Phone Care Team Providers Care Stave Grader Name Role Phone Chevy Belle MD Primary Care Provider [phone] Farhana Ceron MD Unavailable [phone] Yumi Carrion MD Unavailable [phone] Encounter Details Date Type Department Care Team (Late st Contact Info) Description 10/09/2022 Orders Only [facility] [address] [place] [phone] Scanning, Provider Social History Tobacco [...] on file Legal Sex Male 11:09 AM STOCK AND STATION AGENT Gender Identity Male 10/11/2021 10:38 AM STOCK AND STATION AGENT Sexual Orientation Straight 10/11/2021 10 :38 AM STOCK AND STATION AGENT 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 on file Not on file Not on file documented as of this encounter Plan of Treatment Not on file documented as of this encounter Procedures Procedure Name Priority Date/Time Associated Diagnosis Comments SLEEP LAB/STUDY - RESULT 10/09/2022 documented in this encounter Results * SLEEP LAB/STUDY - RESULT (10/09/2022) us Provider Scanning Final Result documented in this encounter Visit Diagnoses Not on filedocumented in this encounter Additional Health Concerns Infection Onset Date Last Indicated Resolved Time COVID: Suspected 01/07/2023 01/08/2023 01/08/2023 3:05 AM STOCK AND STATION AGENT COVID: Suspected 02/06/2024 02/06/2024 02/06/2024 3:09 PM CDT COVID: Suspected 09/17/2024 09/17/2024 09/17/2024 9:00 AM STOCK AND STATION AGENT COVID: Suspected 03/23/2025 03/23/2025 03/23/2025 9:28 AM CDT documented as of this encounter Care Teams Stave Grader Relationship Specialty Start Date End Date Chevy Belle MD PCP - General 02/07/17 Farhana Ceron MD [address] [place] [address] Surgeon Anesthesiology 09/07/23 Yumi Carrion MD [address] [id number] Consulting Physician Critical Care Med 11/25/24 documented as of this encounter
--- OUTSIDE RECORDS SUMMARY | 2025-05-11 13:15 | XMS_ITS ---
Author Organization [facility] [email or web address] [facility] Address [address] [place] [address] Care Team Providers Care Telephone Quotation Clerk Name Role Phone Chevy Belle MD Primary Care Provider Conrado Hodgson Unavailable [phone] REASON FOR VISIT 3 month f/u Social History Sex Assigned At : Social History Observation Description Sex Assigned At Female Encounters Encounter Location Date Provider Diagnosis [facility] [place] [id number] [facility] [address] [place] [address] 03/11/2025 Conardo Mcadams Plan Of Treatment Next Appt Details Provider Name:Conrado Mcadams , 06/23/2025 10:15:00 AM, [address], [facility] [address], [place], [address], Progress Notes * ROMAIN KARIDOB:1950 (75 yo M)Acc No.[id number]:03/11/2025 Patient: KARI VALLEJO Provider: Huey MCADAMS MD :1950 A ge:74 Y S ex:Male Date:03/11/2025 [facility] [address] [facility] Pcp:Chevy Belle MD Subjective: * Chief Complaints: * 1 . 3 month f/u. * Active Problem List Z87.891 Former cigarette smo ker Onset Date:11/19/2016Modified On:07/19/2024W/U Status:confirmed I10 Benign hypertension Onset Date:03/26/2014Modified On:07/19/2024W/U Status:confirmed F32.A Depression Onset Date:12/20/2021Modified On:07/19/2024 Status:confirmedClinical Status:Active Z68.33 BMI 33.0-33.9,adult Onset Date:02/25/2019Modified On:07/19/2024 Status:confirmedClinical Status:Active L82.1 Keratosis, seborrhei c Onset Date:02/12/2021Modified On:07/19/2024 Status:confirmedClinical Status:Active M48.062 Spinal stenosis of l umbar region with neurogenic claudication Onset Date:09/23/2023Modified On:07/19/2024 Status:confirmedClinical Status:Active 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, recurrent severe without psychotic features Onset Date:03/22/2021Modified On:07/19/2024 Status:confirmed F43.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, chronic Onset Date:03/22/2021Modified On:07/19/2024 Status:confirmed I10 Essential (primary) hypertension Onset Date:03/22/2021Modified On:07/19/2024 Status:confirmed 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
--- OUTSIDE RECORDS SUMMARY | 2025-05-11 13:15 | XMS_ITS | Continuity of Care Document ---
Author Organization [facility] Address [facility] [place] [address] Phone Care Team Providers Care Coining Press Operator Name Role Phone Unavailable Unavailable Unavailable Advance Directives Directive Yes / No Effective Date File Name No Information Encounters Encounter Description Practice Location Reason(s) For Visit Diagnoses Date Provider Providers Copied on Encounter [facility], [address] [place] [address], [id number], [place] tel:[phone] [facility] No Information 3 No Information Family History Family Member Type Diagnosis Age At Onset No Information Payers Payer name Insurance type Covered republican ID Authoriza tion(s) No Information Social History [...]
== END 2025-05-11 13:07 | disposition home or self-care (01) ==
PROVIDERS: PCP Internal Medicine; Visit Provider Nurse Practitioner Family
DX: R05.3 Chronic cough (principal); K80.20 Calculus of gallbladder without cholecystitis without obstruction
CPT/HCPCS: 71250

== ENCOUNTER 2025-07-07 10:13 | Outpatient (CLI) | payer MEDICARE, SELFPAY ==
--- OUTSIDE RECORDS SUMMARY | 2025-03-11 06:15 | XMS_ITS ---
Author Organization [facility] [employer] [facility] Address [address] [place] [address] Care Team Providers Care Co Founder Name Role Phone Chevy Belle MD Primary Care Provider Conrado Hodgson Unavailable [phone] REASON FOR VISIT 3 month f/u Social History Sex Assigned At : Social History Observation Description Sex Assigned At Female Encounters Encounter Location Date Provider Diagnosis [facility] [place] [id number] [facility] [address] [place] [address] 03/11/2025 Conrado Mcadams Plan Of Treatment Next Appt Details Provider Name:Conrado Mcadams , 09/29/2025 10:15:00 AM, [address], [facility] [address], [place], [address], Progress Notes * ROMAIN KARIDOB:1950 (75 yo M)Acc No.[id number]:03/11/2025 Patient: KARI VALLEJO Provider: Huey MCADAMS MD :1950 A ge:74 Y S ex:Male Date:03/11/2025 [facility] [address] [facility] Pcp:Chevy Belle MD Subjective: * Chief Complaints: * 3 month f/u * Active Problem List Z87.891 Former cigarette smo ker Onset Date:11/19/2016Modified On:07/19/2024W/U Status:confirmed I10 Benign hypertension Onset Date:03/26/2014Modified On:07/19/2024W/U Status:confirmed F32.A Depression Onset Date:12/20/2021Modified On:07/19/2024 Status:confirmedClinical Status:active Z68.33 BMI 33.0-33.9,adult Onset Date:02/25/2019Modified On:07/19/2024 Status:confirmedClinical Status:active L82.1 Keratosis, seborrhei c Onset Date:02/12/2021Modified On:07/19/2024 Status:confirmedClinical Status:active M48.062 Spinal stenosis of l umbar region with neurogenic claudication Onset Date:09/23/2023Modified On:07/19/2024 Status:confirmedClinical Status:active 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, recurrent severe without psychotic features Onset Date:03/22/2021Modified On:07/19/2024 Status:confirmed F43.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, chronic Onset Date:03/22/2021Modified On:07/19/2024 Status:confirmed I10 Essential (primary) hypertension Onset Date:03/22/2021Modified On:07/19/2024 Status:confirmed F63.9 Impulse disorder, un specified Onset Date:03/22/2021Modified On:07/19/2024 Status:confirmed F41.1 FANNY (generalized anx iety disorder) Modified On:07/19/2024 Status:confirmed R41.3 Memory impairment Modified On:03/24/2025U Status:confirmed * Electronic signature of Irlanda Mcadams MD on 07/07/2025 at 10:21 AM CDT Sign off status: Pending * Provider: Huey MCADAMS MD Date: 0 03/11/2025 Generated for Nino kapoor/Jluis/eTransmitting on: 0 07/07/2025 10:21 AM CDT
--- OUTSIDE RECORDS SUMMARY | 2025-07-07 10:21 | XMS_ITS | Clinical Summary ---
Author Organization [facility] Address [address] [place] [address] Care Team Providers Care Wafer Slicer Name Role Phone Chevy Belle MD Primary Care Provider [phone] Source Comments [facility],non-owned Affiliates and Associated Physician Practices is amultiple site organization consisting of ambulatory clinics and hospital sitesin [place], [place], [place] and [place]. This disclosure is being madepursuant to the Care Everywhere program and may not contain all information available regarding this patient. Last updated 18.[facility] Allergies No known active allergies Medications * [...] mg by mouth daily with breakfast Active Encounters Date Type Department Care Team Description 05/26/2025 Travel from Last 3 Months Social History Tobacco Use Types Packs/Day Years Used Date Smoking Tobacco: Never Assessed Sex and Gender Information Value Date Recorded Sex Assigned at Not on file Legal Sex Male 3:21 PM CDT Gender Identity Not on file Sexual Orientation Not on file Last Filed Vital Signs Vital Sign Reading Time Taken Comments Blood Pressure 152/80 01/14/2023 11:30 AM BRICK OR BLOCK MAKER Pulse 50 01/14/2023 11:58 AM BRICK OR BLOCK MAKER Temperature 36.7 C (98 F) 04/29/2017 2:52 PM CDT Respiratory Rate 13 01/14/2023 11:58 AM BRICK OR BLOCK MAKER Oxygen Saturation 94% 01/14/2023 11:58 AM BRICK OR BLOCK MAKER Inhaled Oxygen Concentration - - Weight 111.1 kg (245 lb) 01/14/2023 6:37 AM BRICK OR BLOCK MAKER Height 185.4 cm (6' 1) 01/14/2023 6:37 AM BRICK OR BLOCK MAKER Body Mass Index 32.32 01/14/2023 6:37 AM BRICK OR BLOCK MAKER Plan of Treatment Health Maintenance Due Date [...] MEDICARE AWV CALENDAR YEAR 2024 INFLUENZA VACCINE (#1) 2025 2, 09/10/2021, 07/19/2020, Additional history exists HEPATITIS B [...] patient's age to complete this topic Insurance [employer] MEDICARE ADV [employer] MEDICARE ADV Care Teams Wafer Slicer Relationship Specialty Start Date End Date Chevy Belle MD PCP - General 09/20/19
--- OUTSIDE RECORDS SUMMARY | 2025-07-07 10:21 | XMS_ITS | Clinical Summary ---
Author Organization [facility] Address [address] [place] [address] Care Team Providers Care Correspondence Dictator Name Role Phone Chevy Belle MD Primary Care Provider [phone] Farhana Ceron MD Unavailable [phone] Yumi Carrion MD Unavailable [phone] Allergies Active Allergy Reactions Criticality Noted Date [...] 11/09/2024 Assessment & Plan (11/09/2024 8:21 AM RN PSYCHIATRIC): Colonoscopy current polyps found no cancer found patient has developed constipation given Linzess 145 mg use once a day as needed samples of 12 given, date of 10 26 2024 Recurrent major depressive disorder, in remissio n 11/09/2024 Assessment & Plan (11/09/2024 8:26 AM RN PSYCHIATRIC): Patient states mood is very good he continues under the care of Dr. Conrado Hughes [facility]. He is on Wellbutrin 300 mg daily, Klonopin 0.5 mg p.r.n. Lamictal 200 mg daily Abrasion of anterior right lower leg 09/25/2024 Assessment & Plan (09/25/2024 6:21 PM RN PSYCHIATRIC): Acute, sustained 3 days ago while working [...] 10/21/2023 Assessment & Plan (10/21/2023 6:11 PM RN PSYCHIATRIC): Patient has some swelling of his lower [...] indicated Assessment & Plan (10/14/2023 4:51 PM RN PSYCHIATRIC): Bilateral lower extremity edema x 1 month. [...] asymptomatic Assessment & Plan (09/23/2023 2:09 PM RN PSYCHIATRIC): Patient has been referred by [facility] to Neurosurgery in [place]. Patient did not get significant relief from [...] 03/14/2023 Assessment & Plan (11/09/2024 8:16 AM RN PSYCHIATRIC): Patient continues using and benefits from use of CPAP Assessment & Plan (09/23/2023 2:07 PM RN PSYCHIATRIC): Patient uses in benefits from CPAP Assessment & Plan (04/02/2023 12:30 PM CDT): Patient's continues to have problems sleeping. Refer him to sleep specialist /wood boatbuilder. Patient complains of feeling short of breath when he lies flat patient does have mild sleep apnea on sleep study September 2022 this was done at [facility] Assessment & Plan (03/14/2023 11:10 AM CDT): [...] 01/08/2023 Assessment & Plan (01/08/2023 8:03 AM RN PSYCHIATRIC): Acute problem, present times about 1 day [...] 05/23/2022 Assessment & Plan (11/09/2024 8:23 AM RN PSYCHIATRIC): Zyloprim/allopurinol 300 mg daily as effective in suppressing symptoms. Assessment & Plan (05/23/2022 5:40 PM CDT): Patient is doing very well with respect gout will recheck uric acid level he is maintain on allopurinol and colchicine. Saw a therapeutic activities services worker in [place]. Keratosis, seborrheic 02/12/2021 Assessment & Plan (02/12/2021 [...] test yesterday [facility] have results back until today a [...] controlled Assessment & Plan (01/10/2020 7:00 PM RN PSYCHIATRIC): Patient's BPH symptoms greatly improved continue Flomax no change in therapy. Assessment & Plan (10/20/2019 3:45 PM RN PSYCHIATRIC): Patient complains of urgency weeks his prostate symptom score is 18 at this time I'm going too start him on Flomax Mild persistent asthma without complication 02/08 Assessment & Plan (11/09/2024 8:16 AM RN PSYCHIATRIC): [facility] he is on medication Symbicort for maintenance therapy as well as albuterol HFA he is stable and feels well. Assessment & Plan (09/24/2024 5:00 PM RN PSYCHIATRIC): Patient has had increased coughing for the [...] no change in therapy. Patient has completed COVVite vaccines. Assessment & Plan (10/19/2020 6:22 PM RN PSYCHIATRIC): Patient continues do very well of with [...] time Assessment & Plan (01/10/2020 6:59 PM RN PSYCHIATRIC): Patient is doing very well with respect his cough as well as asthma symptoms. No change in therapy. Assessment & Plan (02/25/2019 9:29 AM CDT): He was diagnosed with airway hyperreactivity about 25 years ago while he was in [place]. He was on Advair Diskus for a [...] 05/08 Assessment & Plan (11/09/2024 8:15 AM RN PSYCHIATRIC): History And physical completed patient's health risk assessment health maintenance reviewed and addressed. Patient has had a laminectomy lumbar spine since his last history and physical exam this relieved his back pain. Patient is now under the care of wood boatbuilder at [facility] doing well he continues to see Psychiatry for recurrent depression in his very stable Assessment & Plan (09/23/2023 2:06 PM RN PSYCHIATRIC): History and physical completed patient's health risk [...] well Assessment & Plan (12/20/2021 12:58 PM RN PSYCHIATRIC): Patient's depression stable is still under care of Psychiatry at [facility] in [place]. Assessment & Plan (10/19/2020 6:22 PM RN PSYCHIATRIC): Patient's depression stable at this time to have times when he is experience in sadness with the holidays and limitation on traveling to see family. Assessment & Plan (05/15/2020 5:53 PM CDT): Depression stable at this time on present medication no change in therapy. Assessment & Plan (04/26/2019 3:14 PM CDT): Patient's managed by psychiatrist conditions stable. Assessment & Plan (10/25/2017 3:02 PM RN PSYCHIATRIC): Patient continues sees psychiatrist and psychologist is [...] symptoms. Assessment & Plan (11/09/2024 8:27 AM RN PSYCHIATRIC): Pressure remains well controlled no change in therapy. 116/68 patient is on verapamil 240 mg daily metoprolol 50 mg daily Assessment & Plan (09/25/2024 6:22 PM RN PSYCHIATRIC): Chronic, at goal. BP stable in office [...] medications. Assessment & Plan (12/20/2021 11:08 AM RN PSYCHIATRIC): BLOOD PRESSURE REMAINS WELL CONTROLLED PATIENT IS TOLERATING MEDICATIONS NO CHANGE IN THERAPY Assessment & Plan (12/14/2020 3:27 PM RN PSYCHIATRIC): Blood pressure remains well control no change in therapy. Patient is tolerating medications Assessment & Plan (10/19/2020 6:21 PM RN PSYCHIATRIC): Hypertension well controlled patient is tolerating medications no change in therapy. Assessment & Plan (07/06/2020 10:02 AM CDT): BP remains well controlled patient is tolerating medication no change in therapy Assessment & Plan (05/15/2020 5:53 PM CDT): Hypertension well controlled patient is tolerating medications no change in therapy. Assessment & Plan (01/10/2020 6:59 PM RN PSYCHIATRIC): Hypertension well controlled patient previously bleed on Bystolic 10 mg per day with samples were given in the past.. Patient will be changed to metoprolol 50 mg per day because of cost of Bystolic. Assessment & Plan (10/20/2019 3:48 PM RN PSYCHIATRIC): Hypertension remains well control no change in therapy. Assessment & Plan (04/26/2019 3:14 PM CDT): Hypertension is unchanged. Continue current treatment regimen. Dietary sodium restriction. Weight loss. Regular aerobic exercise. Continue current medications. Blood pressure will be reassessed at the next regular appointment. Assessment & Plan (12/10/2018 5:45 PM RN PSYCHIATRIC): Patient's blood pressure is not controlled I [...] days. Assessment & Plan (10/04/2018 1:43 PM RN PSYCHIATRIC): He has high blood pressure which is [...] appointment. Assessment & Plan (10/21/2017 10:37 AM RN PSYCHIATRIC): Hypertension is unchanged. Dietary sodium restriction. Weight loss. Regular aerobic exercise. Continue current medications. Blood pressure will be reassessed at the next regular appointment. Assessment & Plan (05/10/2017 3:41 PM CDT): Hypertension is unchanged. Continue current treatment regimen. Regular aerobic exercise. Blood pressure will be reassessed at the next regular appointment. History of kidney stones 09/10/1988 Assessment & Plan (09/16/2018 4:57 PM RN PSYCHIATRIC): There is a long history of recurring [...] 10/27/2024 Assessment & Plan (09/25/2024 6:19 PM RN PSYCHIATRIC): Acute, URI symptoms for 2 weeks. Has [...] 05/03/2024 Assessment & Plan (10/21/2023 6:07 PM RN PSYCHIATRIC): Patient has some swelling of his lower [...] also has sleep apnea recently diagnosed referral wood boatbuilder for both problems. Constipation 05/23/2022 05/03/2024 Assessment [...] do considerable walking in the airport in [place] which aggravated pain even more. Exam this [...] 04/02/2023 Assessment & Plan (12/20/2021 1:00 PM RN PSYCHIATRIC): Patient's gout and he is under care of Podiatry will check a uric acid level for this information on to his polymerization supervisor patient is very comfortable now with his gout is advised me he is on a particular diet prescribed by his polymerization supervisor. Assessment & Plan (06/29/2021 11:01 AM CDT): [...] 12/14/202004/11 Assessment & Plan (12/14/2020 3:26 PM RN PSYCHIATRIC): Patient is a lesion on his left [...] 05/15/2020 Assessment & Plan (01/10/2020 7:01 PM RN PSYCHIATRIC): Eczema on the left shoulder patient given betamethasone 0.05% apply b.i.d. Flu-like symptoms 10/20/2019 01/10/2020 Assessment & Plan (10/20/2019 3:45 PM RN PSYCHIATRIC): Patient's flu like symptoms he is advised supportive care Tylenol or Advil Mucinex rest fluids Left foot pain 03/28/2019 04/02/2023 Assessment & Plan (10/19/2020 6:23 PM RN PSYCHIATRIC): Patient advised me he is having a [...] a chronic cough his upcoming appointment with wood boatbuilder. Had a chest x-ray today because he was feeling so bad and has a positive influenza a chest x-ray reveals a infiltrate on right lower lobe possible atelectasis. Patient is given Levaquin 75 mg twice a day for 5 days. Abdominal pain 12/10/2018 05/15/2020 Assessment & Plan (12/10/2018 5:45 PM RN PSYCHIATRIC): Forty-five days ago patient start of nausea [...] pulmonology.. He notices cough after [place] and there was some perfume the was [...] cough. Assessment & Plan (12/10/2018 5:45 PM RN PSYCHIATRIC): Patient reports his coughing is improving he is off the lisinopril now. He give me a progress report in about 2 weeks regarding his coughing. Assessment & Plan (11/19/2018 6:18 PM RN PSYCHIATRIC): Patient Marahair helped him some. I reviewed [...] daily. Assessment & Plan (11/09/2018 5:55 PM RN PSYCHIATRIC): Patient having persistent cough. Today reveals some me this cough started in the mid a is seasonal. Albuterol never he helped him to a satisfactory level . Patient indicates Tessalon Perles no no longer effective. He informs me for the 1st time he has had this cough since the mid 80s. Moved to [facility] wood boatbuilder at that time had many tests done [...] mcg Assessment & Plan (10/20/2018 12:34 PM RN PSYCHIATRIC): Patient's cough for coughing up clear sputum [...] today. Assessment & Plan (10/12/2018 5:32 PM RN PSYCHIATRIC): Lot of congestion in his chest he [...] to a relative who had bronchitis at [facility].. Plans trial of Robitussin DM progress report in 48 hr at this fails I will give him Tessalon Perles. Acute cystitis without hematuria 09/13/2018 03/23/2019 Assessment & Plan (09/16/2018 4:55 PM RN PSYCHIATRIC): He has a history of recurring urinary [...] 05/23/2022 Assessment & Plan (10/19/2020 6:24 PM RN PSYCHIATRIC): Patient having neck pain which started last [...] pain Assessment & Plan (12/20/2021 1:02 PM RN PSYCHIATRIC): Patient continues to have some right shoulder [...] Encounters Date Type Department Care Team Description 05/11/2025 Orders Only [facility] Information Management [address] [place] [address] Scanning, Provider 04/14/2025 Telephone [facility] [address] [facility] [address] [place] [address] Chevy Belle MD pulle groin muscle from Last 3 Months Immunizations Immunization Administration [...] on file Legal Sex Male 11:09 AM RN PSYCHIATRIC Gender Identity Male 10/11/2021 10:38 AM RN PSYCHIATRIC Sexual Orientation Straight 10/11/2021 10 :38 AM RN PSYCHIATRIC 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 Not on file Not on file [...] Procedure Name Priority Date/Time Associated Diagnosis Comments SCAN - RADIOLOGY/IMAGING 05/11/2025 US ABDOMINAL AORTA Schedule MELLISA, Read MELLISA (Appt Today, Awaiting Results) 12/10/2018 10:15 AM RN PSYCHIATRIC Abdominal pain, unspecified abdominal location COLONOSCOPY Routine 09/22/2018 HEPATITIS C ANTIBODY Routine 05/08/2017 10:05 AM CDT from Last 3 Months or Most Recently Relevant to Health Maintenance Results * SCAN - RADIOLOGY/IMAGING (05/11/2025) Anatomical Region Laterality Modality Other us Provider Scanning Final Result * US Abdominal Aorta (12/10/2018 10:15 AM RN PSYCHIATRIC) Anatomical Region Laterality Modality Abdomen N/A Ultrasound Impressions 12/10/2018 3:32 PM RN PSYCHIATRIC No sonographic evidence of abdominal aortic aneurysm. 5.6 x 5.8 cm simple cyst of the left inferior kidney noted. Common iliac arteries are prominent measuring upwards of 1.3 cm in diameter. Narrative 12/10/2018 3:32 PM RN PSYCHIATRIC Examination demonstrates the abdominal aorta to have [...] upwards of 1.3 cm in diameter. Chevy Blele MD IMG US PROCEDURES Final Re sult * COLONOSCOPY (09/22/2018) Colonoscopy Normal Jannette Provider HEALTH MAINTENANCE Final Result * Hepatitis C antibody (05/08/2017 10:05 AM CDT) Hep C Ab Negative Negative BELKYS Blood specimen (specimen) 05/08/2017 10:05 AM CDT 05/08/2017 8:17 PM CDT Chevy Belle MD LAB MICROBIOLOGY - GENERAL [place] [address] Department [place] [address] from Last 3 Months or Most Recently Relevant to Health Maintenance Insurance [facility] MEDICARE ADVANTAGE [facility] MEDICARE Address: [address] [address] [place] [phone] [facility] MEDICARE ADVANTAGE [facility] MEDICARE Address: [address] [address] [place] [phone] [facility] MEDICARE ADVANTAGE [facility] MEDICARE Address: [facility] [address] [place] [address] Care Teams Correspondence Dictator Relationship Specialty Start Date End Date Chevy Belle MD PCP - General 02/07/17 Farhana Ceron MD [address] [place] [address] Surgeon Anesthesiology 09/07/23 Yumi Carrion MD [address] [facility] [address] [place] [address] Consulting Physician Critical Care Med 11/25/24
--- OUTSIDE RECORDS SUMMARY | 2025-07-07 10:21 | XMS_ITS | Clinical Summary ---
Author Organization [facility] Address [address] [place] [address] Phone Care Team Providers Care Jump Roll Operator Name Role Phone Chevy Belle MD Primary Care Provider Allergies No known active allergies Medications clonazePAM [...] Take 1 Tab by mouth daily. Active Crawford-3 Fatty Acids (FISH OIL PO) Take 1 [...] 3-dose series) 11/08/2024 06/08/2024, 09/02/2023 Influenza Immunization (#1) 07/11/202508/10, 08/01/2022, 09/10/2021, Additional history exists Pneumococcal Immunization [...] to complete [place] [phone] MEDICARE C [facility] Care Teams Jump Roll Operator Relationship Specialty Start Date End Date Chevy Belle MD [address] [place] [address] PCP - General Internal Medicine 12/05/16
--- OUTSIDE RECORDS SUMMARY | 2025-07-07 10:21 | XMS_ITS | Encounter Summary ---
Author Organization [facility] Address [address] [place] [address] Phone Care Team Providers Care Clinic Office Assistant Name Role Phone Chevy Belle MD Primary Care Provider [phone] Farhana Ceron MD Unavailable [phone] Yumi Carrion MD Unavailable [phone] Encounter Details Date Type Department Care Team (Late st Contact Info) Description 10/09/2022 Orders Only [facility] [address] [place] [address] Scanning, Provider Social History Tobacco [...] on file Legal Sex Male 11:09 AM COMFORT STATION SUPERVISOR Gender Identity Male 10/11/2021 10:38 AM COMFORT STATION SUPERVISOR Sexual Orientation Straight 10/11/2021 10 :38 AM COMFORT STATION SUPERVISOR 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 on file Not on file Not [...] COVID: Suspected 01/07/2023 01/08/2023 01/08/2023 3:05 AM COMFORT STATION SUPERVISOR COVID: Suspected 02/06/2024 02/06/2024 02/06/2024 3:09 PM CDT COVID: Suspected 09/17/2024 09/17/2024 09/17/2024 9:00 AM COMFORT STATION SUPERVISOR COVID: Suspected 03/23/2025 03/23/2025 03/23/2025 9:28 AM CDT documented as of this encounter Care Teams Clinic Office Assistant Relationship Specialty Start Date End Date Chevy Belle MD PCP - General 02/07/17 Farhana Ceron MD [address] [place] [address] Surgeon Anesthesiology 09/07/23 Yumi Carrion MD [address] [id number] Consulting Physician Critical Care Med 11/25/24 documented as of this encounter
--- OUTSIDE RECORDS SUMMARY | 2025-07-07 10:21 | XMS_ITS | Encounter Summary ---
Author Organization [facility] Address [address] [place] [address] Phone Care Team Providers Care Director Home Health Name Role Phone Chevy Belle MD Primary Care Provider [phone] Farhana Ceron MD Unavailable [phone] Yumi Carrion MD Unavailable [phone] Encounter Details Date Type Department Care Team (Late st Contact Info) Description 09/12/2022 Orders Only [facility] [address] [place] [address] Scanning, Provider Social History Tobacco [...] on file Legal Sex Male 11:09 AM COFFEE SHOP AIDE Gender Identity Male 10/11/2021 10:38 AM COFFEE SHOP AIDE Sexual Orientation Straight 10/11/2021 10 :38 AM COFFEE SHOP AIDE 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 Not on [...] COVID: Suspected 01/07/2023 01/08/2023 01/08/2023 3:05 AM COFFEE SHOP AIDE COVID: Suspected 02/06/2024 02/06/2024 02/06/2024 3:09 PM CDT COVID: Suspected 09/17/2024 09/17/2024 09/17/2024 9:00 AM COFFEE SHOP AIDE COVID: Suspected 03/23/2025 03/23/2025 03/23/2025 9:28 AM CDT documented as of this encounter Care Teams Director Home Health Relationship Specialty Start Date End Date Chevy Belle MD PCP - General 02/07/17 Farhana Ceron MD [address] [place] [address] Surgeon Anesthesiology 09/07/23 Yumi Carrion MD [address] [id number] Consulting Physician Critical Care Med 11/25/24 documented as of this encounter
--- OUTSIDE RECORDS SUMMARY | 2025-07-07 10:21 | XMS_ITS | Encounter Summary ---
Author Organization [facility] Address [address] [place] [address] Phone Care Team Providers Care Naturalization Examiner Name Role Phone Chevy Belle MD Primary Care Provider [phone] Farhana Ceron MD Unavailable [phone] Yumi Carrion MD Unavailable [phone] Encounter Details Date Type Department Care Team (Late st Contact Info) Description 07/24/2017 Orders Only [facility] [address] [place] [address] Chevy Belle MD [address] [place] [address] Dry eyes (Primary Dx) Social History Tobacco Use Types Packs/Day Years Used Date Smoking Tobacco: Former Smokeless Tobacco: Former Alcohol Use Standard Drinks/Week Comments Yes 0 (1 standard drink = 0.6 oz pur e alcohol) Sex and Gender Information Value Date Recorded Sex Assigned at Not on file Legal Sex Male 11:09 AM TIMBER SIZER Gender Identity Male 10/11/2021 10:38 AM TIMBER SIZER Sexual Orientation Straight 10/11/2021 10 :38 AM TIMBER SIZER documented as of this encounter Plan of Treatment Not on file documented as of this encounter Visit Diagnoses Diagnosis Dry eyes- Primary Unspecified tear film insufficiency documented in this encounter Additional Health Concerns Infection Onset Date Last Indicated Resolved Time COVID: Suspected 03/05/2022 03/05/2022 03/05/2022 2:46 PM CDT COVID: Suspected 01/07/2023 01/08/2023 01/08/2023 3:05 AM TIMBER SIZER COVID: Suspected 02/06/2024 02/06/2024 02/06/2024 3:09 PM CDT COVID: Suspected 09/17/2024 09/17/2024 09/17/2024 9:00 AM TIMBER SIZER COVID: Suspected 03/23/2025 03/23/2025 03/23/2025 9:28 AM CDT documented as of this encounter Care Teams Naturalization Examiner Relationship Specialty Start Date End Date Chevy Belle MD PCP - General 02/07/17 Farhana Ceron MD [address] [place] [address] Surgeon Anesthesiology 09/07/23 Yumi Carrion MD [address] [address] Consulting Physician Critical Care Med 11/25/24 documented as of this encounter
--- OUTSIDE RECORDS SUMMARY | 2025-07-07 10:22 | XMS_ITS | Patient Health Record ---
Author Organization [facility] [employer] [facility] Address [address] [facility] [address] [place] [address] Care Team Providers Care Assistive Technology Specialist Name Role Phone Chevy Belle MD Primary Care Provider Conrado Hodgson Unavailable [phone] Allergies No Known Allergies Results Component Value Reference Range Notes UDT Reviewed date:07/19/2024 09:20:37 AM Interpretation: Performing Lab: Notes/Report: THC N 0 - 50 ng/ml Cocaine N 0 - 300 ng/ml Amphetamine N 0 - 1000 ng/ml Buprenorphine (BUP) N 0 - 10 ng/ml Secobarbital (Bar) N 0 - 300 ng/ml Oxazepam (BZO) N 0 - 300 ng/ml 7-bmexaiyutp-0,0-ofelfabp-8,3-diphenylpyrrolidine (HARRY P) N 0 - 300 ng/ml Methamphetamine (MET) N 0 - 1000 ng/ml Methylenedioxymethamphetamine (MDMA) N 0 - 500 ng/ml Morphine (MOP 300/CFF1958) N 0 - 300 ng/ml Methadone (MTD) N 0 - 300 ng/ml Phencyclidine (PCP) N 0 - 25 ng/ml Nortriptyline (TCA) N 0 - 1000 ng/ml Oxycodone N 0 - 300 ng/ml x N 0 - 300 ng/ml UDT Reviewed date:06/23/2025 10:45:02 AM Interpretation: Performing Lab: Notes/Report: THC N 0 - 50 ng/ml Cocaine N 0 - 300 ng/ml Amphetamine N 0 - 1000 ng/ml Buprenorphine (BUP) N 0 - 10 ng/ml Secobarbital (Bar) N 0 - 300 ng/ml Oxazepam (BZO) N 0 - 300 ng/ml 1-qctuqdiopi-5,4-whzzyilg-8,3-diphenylpyrrolidine (HARRY P) N 0 - 300 ng/ml Methamphetamine (MET) N 0 - 1000 ng/ml Methylenedioxymethamphetamine (MDMA) N 0 - 500 ng/ml Morphine (MOP 300/[id number]) N 0 - 300 ng/ml Methadone (MTD) N 0 - 300 ng/ml Phencyclidine (PCP) N 0 - 25 ng/ml Nortriptyline (TCA) N 0 - 1000 ng/ml Oxycodone N 0 - 300 ng/ml Reason For Referral No Information Medications Medication SIG (Take, Route, Frequency, Duration) Notes Start Date End Date Status Glucosamine Chond Cmp Advanced - Tablet as directed Orally 07/19/2024 Acti ve Aspir-81 07/19/2024 Active Multivitamin - Tablet 1 tablet Orally On ce a day; Duration: 30 day(s) 07/19/2024 Active Verapamil HCl ER 240 MG Tablet Extended Release 1 tablet Orally Once a day; Duration: 30 day(s) 07/19/2024 Active Metoprolol Succinate ER 50 MG Tablet Extended Release 24 Hour Oral; Duration: 100 Days Act bobby Allopurinol 100 MG Tablet Oral; Duration: 100 Days Active lamoTRIgine 200 MG Tablet 1 tablet at be dtime Orally Once a day; Duration: 90 days Active clonazePAM 0.5 MG Tablet 1 tablet Oral O nce a day; Duration: 30 days 06/23/2025 Active Furosemide 20 MG Tablet TAKE 1 TABLET BY MOUTH ONCE DAILY Oral; Duration: 30 Days Active buPROPion HCl ER (XL) 300 MG Tablet Extended Release 24 Hour 1 tablet every morning Oral Once a day; Duration: 90 days Active Symbicort 160-4.5 MCG/ACT Aerosol INHALE 2 PUFFS BY MOUTH EVERY 12 HOURS, RINSE AND SPIT. APPOINTMENT REQUIRED FOR FUTURE REFILLS. Inhalation; Duration: 30 Days Active lamoTRIgine 200 MG Tablet 1 tablet at be dtime Orally Once a day; Duration: 90 days Active Albuterol Sulfate HFA 108 (90 Base) MCG/ACT Aerosol Solution INHALE 2 PUFFS BY MOUTH EVERY 6 HOURS NEEDED FOR WHEEZING OR SHORTNESS OF BREATH (COUGH) Inhalation; Duration: 25 Days Active Melatonin 12 MG Tablet as directed Orally 07/19/20 24 Active Immunizations Vaccine Route Administration Date Status Comme nts Influenza, high dose seasonal Unknown 07/13/2015 Admini stered Influenza, high dose seasonal Unknown 07/14/2018 Admini stered Influenza, high-dose seasona l, quadrivalent, preservative free >65 yrs Unknown 07/19/2020 Administered Influenza, seasonal, injecta ble, preservative free, 3 yrs and above Unknown 08/05/2013 Administered Infuenza, trivalent, recombi nant, preservative free Unknown 07/27/2019 Administered Moderna Covid-19 Vaccine 1st dose Unknown 12/07/2020 Ad ministered Moderna Covid-19 Vaccine 1st dose Unknown 01/09/2021 Ad ministered Social History Tobacco Use: Social History Observation Description Date Details (start date - stop date) Former Smoker NA - NA Sex Assigned At : Social History Observation Description Sex Assigned At Female Social History Tobacco Use: Social Info Question Answer Notes Tobacco Control (Standard) Tobacco use: Former smoker Additional Details Category Social Info Options Details Migrated Social History Migrated Social History Alcohol Intake: Occasional 03/22/2021,Tobacco Years: Former smoker 03/22/2021,Smoking Status: 10 03/22/2021 Drug/Alcohol: Do you smoke marijuana? Admits on occasion Do you drink alcohol? Socially Problems Problem Type SNOMED Code ICD Code Onset Dates Problem Status W/U Status Risk Notes Problem Severe recurrent major depression without psychotic features (08709283) Major depressive disorder, recurrent severe without psychotic features (F33.2) 1 Active confirmed Problem Posttraumatic stress disorder (60754542) Post-traumatic stress disorder, chronic (F43.12) 1 Active confirmed Problem Impulse control disorder (33427240) Impulse disorder, unspecified (F63.9) 1 Active confirmed Problem Essential hypertension (14913153) Essential (primary) hypertension (I10) 1 Active confirmed Problem Generalized anxiety disorder (02446583) FANNY (generalized anxiety disorder) (F41.1) Active confirmed Problem Memory impairment (349995072) Memory impairment (R41.3) Active confirmed Problem Ex-cigarette smoker (finding) (054375191) Former cigarette smoker (Z87.891) 7 Active confirmed Problem Benign hypertension (15706195) Benign hypertension (I10) 4 Active confirmed Problem Depression (069389929) Depression (F32.A) 2 Active confirmed Problem Obese class I (619621895564145) BMI 33.0-33.9,adult (Z68.33) 9 Active confirmed Problem Seborrheic keratosis (10315707) Keratosis, seborrheic (L82.1) 1 Active confirmed Problem Neurogenic claudication (280701525) Spinal stenosis of lumbar region with neurogenic claudication (M48.062) 3 Active confirmed Vital Signs Heart Rate 64 /min 06/23/2025 Height-cm 185.42 cm 06/23/2025 Blood pressure diastolic 83 mm Hg 06/23/2025 Weight-kg 108.41 kg 06/23/2025 Height 73.00 in 06/23/2025 Blood pressure systolic 154 mm Hg 06/23/2025 Weight 239 lbs 06/23/2025 BMI 31.53 kg/m2 06/23/2025 Encounters Encounter Location Date Provider Diagnosis [facility] [address] [address] 07/19/2024 Conradoterence Hughes Major depressive disorder, recurrent severe without psychotic features F33.2 ; FANNY (generalized anxiety disorder) F41.1 ; Essential (primary) hypertension I10 and Impulse disorder, unspecified F63.9 [facility] [employer] [address] 08/03/2024 Conrado Saul [address] [address] 08/25/2024 Conrado Saul Major depressive disorder, recurrent severe without psychotic features F33.2 ; FANNY (generalized anxiety disorder) F41.1 ; Essential (primary) hypertension I10 and Impulse disorder, unspecified F63.9 [facility] [employer] [address] 12/08/2024 Conrado Saul [address] [address] 12/13/2024 Conrado Saul Major depressive disorder, recurrent severe without psychotic features F33.2 ; FANNY (generalized anxiety disorder) F41.1 ; Essential (primary) hypertension I10 and Impulse disorder, unspecified F63.9 [facility], [address] [address] 03/24/2025 Conrado Hughes Major depressive disorder, recurrent severe without psychotic features F33.2 ; FANNY (generalized anxiety disorder) F41.1 ; Essential (primary) hypertension I10 ; Impulse disorder, unspecified F63.9 ; Encounter for screening for depression Z13.31 ; Encounter for screening for cardiovascular disorders Z13.6 ; Dietary counseling and surveillance Z71.3 and Memory impairment R41.3 [facility] [address] [address] 06/23/2025 Conrado Hughes Major depressive disorder, recurrent severe without psychotic features F33.2 ; FANNY (generalized anxiety disorder) F41.1 ; Essential (primary) hypertension I10 ; Impulse disorder, unspecified F63.9 and Memory impairment R41.3 [facility] [address] [address] 07/29/2024 Conrado Hughes [facility] [address] [address] 07/30/2024 Conrado Hughes [facility] [address] [address] 12/09/2024 Conrado Hughes Assessments Encounter Date Diagnosis (ICD Code) Assessment Notes Treatment Notes Treatment Clinical Notes Section Notes 08/25/2024 Major depressive disorder, recurrent severe without psychotic features (ICD-10 - F33.2) Depression and Anxiety - Assessment: Patient reports doing well on current medications, with no need for clonazepam in the past month. Bupropion 300 mg daily has not significantly improved procrastination issues. Patient reports feeling good after completing tasks, such as walking. - Plan: - Continue current medications: Bupropion 300 mg daily and Lamotrigine 200 mg at bedtime. - Encourage patient to maintain a regular schedule, engage in physical activity, and practice stress reduction techniques. Hypertension - Assessment: Blood pressure measured at 160/70 during the visit, but patient reports lower readings at home (135-138/mid-70s) . - Plan: - Continue current medications: Metoprolol and Verapamil. - Monitor blood pressure regularly. - Encourage patient to maintain a healthy diet, exercise regularly, and reduce stress. Memory Concerns and Alzheimer's Risk - Assessment: Patient completed the cancer MCI test, with results indicating a low risk of Alzheimer's dementia at present. Patient reports recent instances of temporary name recall difficulties. - Plan: - Encourage patient to stay active, engage in brain exercises, and maintain overall health to reduce risk. - Implement annual memory tests for monitoring purposes, starting at age 70 (or 65 if policy changes). - Reassure patient that temporary memory lapses are common with age and will be monitored. Weight Management - Assessment: Patient acknowledges the need for weight loss. - Plan: - Encourage patient to engage in regular physical activity and maintain a balanced diet. - Provide resources for healthy lifestyle changes and weight management strategies. Follow-up - Plan: - Schedule a follow-up appointment in three months to monitor progress and address any concerns. - If memory lapses become more frequent or concerning, consider running memory tests sooner. - Consider implementing SLUMS test if MA is available. 12/13/2024 Major depressive disorder, recurrent severe without psychotic features (ICD-10 - F33.2) 03/24/2025 Major depressive disorder, recurrent severe without psychotic features (ICD-10 - F33.2) 03/24/2025 FANNY (generalized anxiety disorder) (ICD-10 - F41.1) 06/23/2025 Major depressive disorder, recurrent severe without psychotic features (ICD-10 - F33.2) 07/19/2024 FANNY (generalized anxiety disorder) (ICD-10 - F41.1) Major Depressive Disorder - Assessment: Patient reports ongoing off-and-on depression with occasional lows lasting 2-3 days. Currently on Wellbutrin (bupropion) and Lamotrigine, which seem to work well. Last depressive episode was about 3 weeks ago, triggered by an insensitive remark. - Plan: - Continue current medications (bupropion XL 300 mg daily and lamotrigine 200 mg at bedtime). - Refill bupropion through [facility]. - Schedule a 3-month follow-up appointment. - Patient will notify provider if lamotrigine prescription is needed in between. Anxiety - Assessment: Patient takes Clonazepam as needed for anxiety, using it less than once a week on average. - Plan: - Continue Clonazepam as needed. - Monitor anxiety symptoms during follow-up appointments. Sleep Disturbance - Assessment: Patient reports poor sleep, averaging 4 hours a night, with a history of possible sleep apnea. Previous sleep study was unsuccessful due to discomfort with equipment. - Plan: - Recommend discussing with Dr. Belle (primary care physician) about redoing the sleep study with sleep medicine. - Educate the patient about the Inspire surgery as a potential treatment option if CPAP is not tolerated. Hypertension - Assessment: Patient is on Metoprolol for blood pressure management. - Plan: - Continue Metoprolol as prescribed. - Encourage regular follow-up with primary care physician for blood pressure monitoring. Lumbar Spinal Issues (Post-Surgery) - Assessment: Patient had back surgery in December for lumbar issues that were pinching the spinal cord and reports significant improvement in symptoms. - Plan: - Encourage the patient to continue walking and maintaining an active lifestyle as tolerated. - Recommend regular follow-up with the surgeon or primary care physician for monitoring post-surgical progress. PTSD Symptoms - Assessment: Patient denies current PTSD symptoms but has a history of anxiety, depression, and occasional panic attacks. Reports being able to control panic attacks better now. - Plan: - Continue to monitor for any PTSD symptoms during follow-up appointments. - Encourage the patient to report any new or worsening symptoms. Substance Use - Assessment: Patient reports not smoking and having 2-3 drinks a week. - Plan: - Encourage the patient to continue abstaining from smoking and to maintain moderate alcohol consumption. - Monitor substance use during follow-up appointments. Relationship - Assessment: Patient reports a positive relationship with Kenia, which he finds helpful. - Plan: - Encourage maintaining supportive relationships as part of overall mental health management. 07/19/2024 Major depressive disorder, recurrent severe without psychotic features (ICD-10 - F33.2) Major Depressive Disorder - Assessment: Patient reports ongoing off-and-on depression with occasional lows lasting 2-3 days. Currently on Wellbutrin (bupropion) and Lamotrigine, which seem to work well. Last depressive episode was about 3 weeks ago, triggered by an insensitive remark. - Plan: - Continue current medications (bupropion XL 300 mg daily and lamotrigine 200 mg at bedtime). - Refill bupropion through [facility]. - Schedule a 3-month follow-up appointment. - Patient will notify provider if lamotrigine prescription is needed in between. Anxiety - Assessment: Patient takes Clonazepam as needed for anxiety, using it less than once a week on average. - Plan: - Continue Clonazepam as needed. - Monitor anxiety symptoms during follow-up appointments. Sleep Disturbance - Assessment: Patient reports poor sleep, averaging 4 hours a night, with a history of possible sleep apnea. Previous sleep study was unsuccessful due to discomfort with equipment. - Plan: - Recommend discussing with Dr. Belle (primary care physician) about redoing the sleep study with sleep medicine. - Educate the patient about the Inspire surgery as a potential treatment option if CPAP is not tolerated. Hypertension - Assessment: Patient is on Metoprolol for blood pressure management. - Plan: - Continue Metoprolol as prescribed. - Encourage regular follow-up with primary care physician for blood pressure monitoring. Lumbar Spinal Issues (Post-Surgery) - Assessment: Patient had back surgery in December for lumbar issues that were pinching the spinal cord and reports significant improvement in symptoms. - Plan: - Encourage the patient to continue walking and maintaining an active lifestyle as tolerated. - Recommend regular follow-up with the surgeon or primary care physician for monitoring post-surgical progress. PTSD Symptoms - Assessment: Patient denies current PTSD symptoms but has a history of anxiety, depression, and occasional panic attacks. Reports being able to control panic attacks better now. - Plan: - Continue to monitor for any PTSD symptoms during follow-up appointments. - Encourage the patient to report any new or worsening symptoms. Substance Use - Assessment: Patient reports not smoking and having 2-3 drinks a week. - Plan: - Encourage the patient to continue abstaining from smoking and to maintain moderate alcohol consumption. - Monitor substance use during follow-up appointments. Relationship - Assessment: Patient reports a positive relationship with Kenia, which he finds helpful. - Plan: - Encourage maintaining supportive relationships as part of overall mental health management. 07/19/2024 Essential (primary) hypertension (ICD-10 - I10) Major Depressive Disorder - Assessment: Patient reports ongoing off-and-on depression with occasional lows lasting 2-3 days. Currently on Wellbutrin (bupropion) and Lamotrigine, which seem to work well. Last depressive episode was about 3 weeks ago, triggered by an insensitive remark. - Plan: - Continue current medications (bupropion XL 300 mg daily and lamotrigine 200 mg at bedtime). - Refill bupropion through [facility]. - Schedule a 3-month follow-up appointment. - Patient will notify provider if lamotrigine prescription is needed in between. Anxiety - Assessment: Patient takes Clonazepam as needed for anxiety, using it less than once a week on average. - Plan: - Continue Clonazepam as needed. - Monitor anxiety symptoms during follow-up appointments. Sleep Disturbance - Assessment: Patient reports poor sleep, averaging 4 hours a night, with a history of possible sleep apnea. Previous sleep study was unsuccessful due to discomfort with equipment. - Plan: - Recommend discussing with Dr. Belle (primary care physician) about redoing the sleep study with sleep medicine. - Educate the patient about the Inspire surgery as a potential treatment option if CPAP is not tolerated. Hypertension - Assessment: Patient is on Metoprolol for blood pressure management. - Plan: - Continue Metoprolol as prescribed. - Encourage regular follow-up with primary care physician for blood pressure monitoring. Lumbar Spinal Issues (Post-Surgery) - Assessment: Patient had back surgery in December for lumbar issues that were pinching the spinal cord and reports significant improvement in symptoms. - Plan: - Encourage the patient to continue walking and maintaining an active lifestyle as tolerated. - Recommend regular follow-up with the surgeon or primary care physician for monitoring post-surgical progress. PTSD Symptoms - Assessment: Patient denies current PTSD symptoms but has a history of anxiety, depression, and occasional panic attacks. Reports being able to control panic attacks better now. - Plan: - Continue to monitor for any PTSD symptoms during follow-up appointments. - Encourage the patient to report any new or worsening symptoms. Substance Use - Assessment: Patient reports not smoking and having 2-3 drinks a week. - Plan: - Encourage the patient to continue abstaining from smoking and to maintain moderate alcohol consumption. - Monitor substance use during follow-up appointments. Relationship - Assessment: Patient reports a positive relationship with Kenia, which he finds helpful. - Plan: - Encourage maintaining supportive relationships as part of overall mental health management. 06/23/2025 FANNY (generalized anxiety disorder) (ICD-10 - F41.1) Patient reports trouble sleeping. Feeling overwhelmed by mother's situation. Taking clonazepam daily. - Discussed current medication regimen. - Recommended continuing clonazepam. 03/24/2025 Essential (primary) hypertension (ICD-10 - I10) 12/13/2024 FANNY (generalized anxiety disorder) (ICD-10 - F41.1) 08/25/2024 FANNY (generalized anxiety disorder) (ICD-10 - F41.1) Depression and Anxiety - Assessment: Patient reports doing well on current medications, with no need for clonazepam in the past month. Bupropion 300 mg daily has not significantly improved procrastination issues. Patient reports feeling good after completing tasks, such as walking. - Plan: - Continue current medications: Bupropion 300 mg daily and Lamotrigine 200 mg at bedtime. - Encourage patient to maintain a regular schedule, engage in physical activity, and practice stress reduction techniques. Hypertension - Assessment: Blood pressure measured at 160/70 during the visit, but patient reports lower readings at home (135-138/mid-70s) . - Plan: - Continue current medications: Metoprolol and Verapamil. - Monitor blood pressure regularly. - Encourage patient to maintain a healthy diet, exercise regularly, and reduce stress. Memory Concerns and Alzheimer's Risk - Assessment: Patient completed the cancer MCI test, with results indicating a low risk of Alzheimer's dementia at present. Patient reports recent instances of temporary name recall difficulties. - Plan: - Encourage patient to stay active, engage in brain exercises, and maintain overall health to reduce risk. - Implement annual memory tests for monitoring purposes, starting at age 70 (or 65 if policy changes). - Reassure patient that temporary memory lapses are common with age and will be monitored. Weight Management - Assessment: Patient acknowledges the need for weight loss. - Plan: - Encourage patient to engage in regular physical activity and maintain a balanced diet. - Provide resources for healthy lifestyle changes and weight management strategies. Follow-up - Plan: - Schedule a follow-up appointment in three months to monitor progress and address any concerns. - If memory lapses become more frequent or concerning, consider running memory tests sooner. - Consider implementing SLUMS test if MA is available. 08/25/2024 Essential (primary) hypertension (ICD-10 - I10) Depression and Anxiety - Assessment: Patient reports doing well on current medications, with no need for clonazepam in the past month. Bupropion 300 mg daily has not significantly improved procrastination issues. Patient reports feeling good after completing tasks, such as walking. - Plan: - Continue current medications: Bupropion 300 mg daily and Lamotrigine 200 mg at bedtime. - Encourage patient to maintain a regular schedule, engage in physical activity, and practice stress reduction techniques. Hypertension - Assessment: Blood pressure measured at 160/70 during the visit, but patient reports lower readings at home (135-138/mid-70s) . - Plan: - Continue current medications: Metoprolol and Verapamil. - Monitor blood pressure regularly. - Encourage patient to maintain a healthy diet, exercise regularly, and reduce stress. Memory Concerns and Alzheimer's Risk - Assessment: Patient completed the cancer MCI test, with results indicating a low risk of Alzheimer's dementia at present. Patient reports recent instances of temporary name recall difficulties. - Plan: - Encourage patient to stay active, engage in brain exercises, and maintain overall health to reduce risk. - Implement annual memory tests for monitoring purposes, starting at age 70 (or 65 if policy changes). - Reassure patient that temporary memory lapses are common with age and will be monitored. Weight Management - Assessment: Patient acknowledges the need for weight loss. - Plan: - Encourage patient to engage in regular physical activity and maintain a balanced diet. - Provide resources for healthy lifestyle changes and weight management strategies. Follow-up - Plan: - Schedule a follow-up appointment in three months to monitor progress and address any concerns. - If memory lapses become more frequent or concerning, consider running memory tests sooner. - Consider implementing SLUMS test if MA is available. 12/13/2024 Essential (primary) hypertension (ICD-10 - I10) 03/24/2025 Impulse disorder, unspecified (ICD-10 - F63.9) 06/23/2025 Essential (primary) hypertension (ICD-10 - I10) Blood pressure is slightly elevated. Patient is taking Verapamil for heart health. - Discussed medication regimen. - Recommended adjustments to improve blood pressure control. 07/19/2024 Impulse disorder, unspecified (ICD-10 - F63.9) Major Depressive Disorder - Assessment: Patient reports ongoing off-and-on depression with occasional lows lasting 2-3 days. Currently on Wellbutrin (bupropion) and Lamotrigine, which seem to work well. Last depressive episode was about 3 weeks ago, triggered by an insensitive remark. - Plan: - Continue current medications (bupropion XL 300 mg daily and lamotrigine 200 mg at bedtime). - Refill bupropion through [facility]. - Schedule a 3-month follow-up appointment. - Patient will notify provider if lamotrigine prescription is needed in between. Anxiety - Assessment: Patient takes Clonazepam as needed for anxiety, using it less than once a week on average. - Plan: - Continue Clonazepam as needed. - Monitor anxiety symptoms during follow-up appointments. Sleep Disturbance - Assessment: Patient reports poor sleep, averaging 4 hours a night, with a history of possible sleep apnea. Previous sleep study was unsuccessful due to discomfort with equipment. - Plan: - Recommend discussing with Dr. Belle (primary care physician) about redoing the sleep study with sleep medicine. - Educate the patient about the Inspire surgery as a potential treatment option if CPAP is not tolerated. Hypertension - Assessment: Patient is on Metoprolol for blood pressure management. - Plan: - Continue Metoprolol as prescribed. - Encourage regular follow-up with primary care physician for blood pressure monitoring. Lumbar Spinal Issues (Post-Surgery) - Assessment: Patient had back surgery in December for lumbar issues that were pinching the spinal cord and reports significant improvement in symptoms. - Plan: - Encourage the patient to continue walking and maintaining an active lifestyle as tolerated. - Recommend regular follow-up with the surgeon or primary care physician for monitoring post-surgical progress. PTSD Symptoms - Assessment: Patient denies current PTSD symptoms but has a history of anxiety, depression, and occasional panic attacks. Reports being able to control panic attacks better now. - Plan: - Continue to monitor for any PTSD symptoms during follow-up appointments. - Encourage the patient to report any new or worsening symptoms. Substance Use - Assessment: Patient reports not smoking and having 2-3 drinks a week. - Plan: - Encourage the patient to continue abstaining from smoking and to maintain moderate alcohol consumption. - Monitor substance use during follow-up appointments. Relationship - Assessment: Patient reports a positive relationship with Kenia, which he finds helpful. - Plan: - Encourage maintaining supportive relationships as part of overall mental health management. 03/24/2025 Encounter for screening for depression (ICD-10 - Z13.31) 06/23/2025 Impulse disorder, unspecified (ICD-10 - F63.9) 12/13/2024 Impulse disorder, unspecified (ICD-10 - F63.9) 08/25/2024 Impulse disorder, unspecified (ICD-10 - F63.9) Depression and Anxiety - Assessment: Patient reports doing well on current medications, with no need for clonazepam in the past month. Bupropion 300 mg daily has not significantly improved procrastination issues. Patient reports feeling good after completing tasks, such as walking. - Plan: - Continue current medications: Bupropion 300 mg daily and Lamotrigine 200 mg at bedtime. - Encourage patient to maintain a regular schedule, engage in physical activity, and practice stress reduction techniques. Hypertension - Assessment: Blood pressure measured at 160/70 during the visit, but patient reports lower readings at home (135-138/mid-70s) . - Plan: - Continue current medications: Metoprolol and Verapamil. - Monitor blood pressure regularly. - Encourage patient to maintain a healthy diet, exercise regularly, and reduce stress. Memory Concerns and Alzheimer's Risk - Assessment: Patient completed the cancer MCI test, with results indicating a low risk of Alzheimer's dementia at present. Patient reports recent instances of temporary name recall difficulties. - Plan: - Encourage patient to stay active, engage in brain exercises, and maintain overall health to reduce risk. - Implement annual memory tests for monitoring purposes, starting at age 70 (or 65 if policy changes). - Reassure patient that temporary memory lapses are common with age and will be monitored. Weight Management - Assessment: Patient acknowledges the need for weight loss. - Plan: - Encourage patient to engage in regular physical activity and maintain a balanced diet. - Provide resources for healthy lifestyle changes and weight management strategies. Follow-up - Plan: - Schedule a follow-up appointment in three months to monitor progress and address any concerns. - If memory lapses become more frequent or concerning, consider running memory tests sooner. - Consider implementing SLUMS test if MA is available. 03/24/2025 Encounter for screening for cardiovascular disorders (ICD-10 - Z13.6) 06/23/2025 Memory impairment (ICD-10 - R41.3) 03/24/2025 Dietary counseling and surveillance (ICD-10 - Z71.3) 03/24/2025 Memory impairment (ICD-10 - R41.3) 07/19/2024 Other Learning About Depression Screening material was printed Major Depressive Disorder - Assessment: Patient reports ongoing off-and-on depression with occasional lows lasting 2-3 days. Currently on Wellbutrin (bupropion) and Lamotrigine, which seem to work well. Last depressive episode was about 3 weeks ago, triggered by an insensitive remark. - Plan: - Continue current medications (bupropion XL 300 mg daily and lamotrigine 200 mg at bedtime). - Refill bupropion through [facility]. - Schedule a 3-month follow-up appointment. - Patient will notify provider if lamotrigine prescription is needed in between. Anxiety - Assessment: Patient takes Clonazepam as needed for anxiety, using it less than once a week on average. - Plan: - Continue Clonazepam as needed. - Monitor anxiety symptoms during follow-up appointments. Sleep Disturbance - Assessment: Patient reports poor sleep, averaging 4 hours a night, with a history of possible sleep apnea. Previous sleep study was unsuccessful due to discomfort with equipment. - Plan: - Recommend discussing with Dr. Belle (primary care physician) about redoing the sleep study with sleep medicine. - Educate the patient about the Inspire surgery as a potential treatment option if CPAP is not tolerated. Hypertension - Assessment: Patient is on Metoprolol for blood pressure management. - Plan: - Continue Metoprolol as prescribed. - Encourage regular follow-up with primary care physician for blood pressure monitoring. Lumbar Spinal Issues (Post-Surgery) - Assessment: Patient had back surgery in December for lumbar issues that were pinching the spinal cord and reports significant improvement in symptoms. - Plan: - Encourage the patient to continue walking and maintaining an active lifestyle as tolerated. - Recommend regular follow-up with the surgeon or primary care physician for monitoring post-surgical progress. PTSD Symptoms - Assessment: Patient denies current PTSD symptoms but has a history of anxiety, depression, and occasional panic attacks. Reports being able to control panic attacks better now. - Plan: - Continue to monitor for any PTSD symptoms during follow-up appointments. - Encourage the patient to report any new or worsening symptoms. Substance Use - Assessment: Patient reports not smoking and having 2-3 drinks a week. - Plan: - Encourage the patient to continue abstaining from smoking and to maintain moderate alcohol consumption. - Monitor substance use during follow-up appointments. Relationship - Assessment: Patient reports a positive relationship with Kenia, which he finds helpful. - Plan: - Encourage maintaining supportive relationships as part of overall mental health management. 12/13/2024 Other Persistent Cough - Assessment: Patient reports a persistent cough despite using inhalers and cough suppressants. No improvement with albuterol nebulization. Acid reflux is a possibility. The cough has been ongoing for years and may be allergy-related, particularly in the fall. - Plan: - Recommend follow-up with primary care physician for further evaluation and management. - Consider allergy testing if the cough is seasonal. Acid Reflux - Assessment: Patient is currently taking yelq-[id number]-jnhytbf reflux medication. - Plan: - Continue current hfpf-ewy-jzmorxo reflux medication. - Monitor for any changes in symptoms. Mood and Depression - Assessment: Patient reports a decline in mood and increased stress due to concerns about their mother's well-being. Currently taking lamotrigine 200 mg at bedtime and bupropion XL 300 mg. Patient mentions procrastination issues and difficulty maintaining their home. - Plan: - Continue current medications. - Monitor for any changes in mood. - Encourage seeking support from family members. - Consider counseling if needed. Anxiety and Clonazepam - Assessment: Patient reports running out of clonazepam 0.5 mg about a month ago, previously prescribed by Dr. Sorto. Patient was previously given 20 tablets to use as needed, sometimes lasting a couple of months. - Plan: - Prescribe clonazepam 0.5 mg as needed for anxiety. - Follow-up in 3 months to monitor usage and effectiveness. Restless Legs - Assessment: Patient reports difficulty sitting still, with leg and foot shaking. - Plan: - Monitor symptoms. - Consider evaluation for restless leg syndrome during next follow-up visit. Follow-up - Plan: - Schedule a follow-up appointment in 3 months to monitor progress and medication effectiveness. Medication Management - Plan: - Bupropion and lamotrigine to be filled through [facility]. - Clonazepam to be filled at the local [facility] pharmacy in [place]. 03/24/2025 Other Vivek Hoyos, a 74-year-old male with a history of depression, presents with an improving respiratory infection and reports stable mood on current psychiatric medications. Respiratory Infection Assessment: Patient reports recent visit to Dr. Belle for respiratory symptoms. He was prescribed new cough medicine and steroids, which he states are improving his condition. He anticipates full recovery by the end of the week. This appears to be a recurrent issue, as the patient mentions experiencing a spring cough annually. Plan: - Continue current treatment regimen as prescribed by Dr. Belle (cough medicine and steroids) - Follow up with primary care physician if symptoms persist or worsen Depression Assessment: Patient's depression appears well-controlled on current medication regimen. He reports a depression score of 5, indicating minimal depressive symptoms. Current medications include lamotrigine 200 mg and bupropion 300 mg, which the patient confirms taking daily. Plan: - Continue lamotrigine 200 mg daily - Continue bupropion 300 mg daily - Maintain current follow-up schedule of 3-month appointments Anxiety Assessment: Patient is currently prescribed alprazolam for anxiety management. He reports using approximately 20 tablets per month, not taking them daily. This suggests that anxiety symptoms are present but not severe enough to require daily medication. Plan: - Continue alprazolam as needed, current prescription sufficient until June - Patient instructed to contact office if medication supply runs low before next appointment Cognitive Function Assessment: Patient reports occasional memory difficulties, citing a recent instance of forgetting the name of a familiar medication. Previous cognitive screening ([employer] test) in August showed a score of 28, which is within normal limits. Annual cognitive screening is recommended. Plan: - Schedule next cognitive screening test for August 2025 - Next follow-up appointment in June 2025, with subsequent visit in September 2025 Disclaimer: This note has been transcribed using speech recognition software and serves as a reflection of the patient's visit. While efforts have been made to ensure accuracy, there may be errors, including vacation guide inaccuracies and misspellings of medication names. This document should not be considered a verbatim record, and any discrepancies should be verified with the provider. Plan Of Treatment Future Test Test Name Order Date MCI Testing 03/24/2025 SLUMS Testing 03/24/2025 Next Appt Details Provider Name:Conradoomar Hughes , 09/29/2025 10:15:00 AM, [address] [address] [address] [address], [facility] [address], [place], [address], Insurance Providers Payer Name Payer Address Payer Phone Subscriber Number Group Number Insured Name Patient Relationship to Insured Coverage Start Date Coverage End Date [employer] Medicare Replacement/ Advantage - [employer]mo [address] [address] [place] [phone] [id number] VIVEK HOYOS Self - patient is the insured Medical (General) History Medical History History ICD Code Problems: Chronic post-traumatic stress disorder Essential hypertension Impulse control disorder Severe recurrent major depression withou t psychotic features , Surgical History Surgery Date(Month/Year) Hospitalization History Reason Date(Month/Year) At [facility], after , 20 11
[2025-07-07 11:02] LABS: Alanine Aminotransferase 34 U/L (6-50); Albumin Level 4.2 g/dL (3.5-5.1); Alkaline Phosphatase 73 U/L (38-126); Anion Gap 7 mmol/L (4-12); Aspartate Amino Transferase 47 U/L (17-59); Bilirubin,Total 0.7 mg/dL (0.2-1.3); Blood Urea Nitrogen 16 mg/dL (9-20); Calcium 9.2 mg/dL (8.4-10.2); Carbon Dioxide 27 mmol/L (22-30); Chloride 107 mmol/L (98-107); Estimated Glomerular Filt Rate > 60; Glucose 99 mg/dL (65-110); Potassium 4.5 mmol/L (3.4-5.0); Sodium 141 mmol/L (137-145); Total Protein 7.7 g/dL (6.3-8.2); Uric Acid 5.0 mg/dL (3.5-8.5)
== END 2025-07-07 10:14 | disposition home or self-care (01) ==
PROVIDERS: PCP Internal Medicine; Visit Provider Podiatrist Foot & Ankle Surgery
DX: M10.079 Idiopathic gout, unspecified ankle and foot (principal)
CPT/HCPCS: 36415; 80053; 84550